=== PATIENT | female | born 1995 | race Caucasian/White ===

== ENCOUNTER 2021-11-23 03:07 | Emergency (ER) | payer BC, SELFPAY ==
[2021-11-23] VITALS (22 sets, daily range): BP systolic 102–141; BP diastolic 57–91; PULSE 71–112; RESP 7–22; TEMP 37; O2SAT 82–100; BMI 16.9
[2021-11-23 03:50] LABS: Add Manual Diff / Slide Review NO; Basophils Absolute Auto 0 /uL (0-100); Basophils Percent Auto 0.5 % (0-2); Eosinophils Absolute Auto 0 /uL (0-450); Eosinophils Percent Auto 0.3 % (2-4); Hematocrit 40.5 % (36-46); Hemoglobin 13.9 g/dL (12.0-16.0); Lymphocytes Absolute Auto 1600 /uL (1100-4500); Lymphocytes Percent Auto 19.8 % (25-40); Mean Corpuscular HGB Conc 34.3 % (30-36); Mean Corpuscular Hemoglobin 32.8 PG (26-34); Mean Corpuscular Volume 95.6 fL (80-100); Monocytes Absolute Auto 800 /uL (0-900); Monocytes Percent Auto 10.2 % (3-14); Neutrophils Absolute Auto 5600 /uL (1500-7000); Neutrophils Percent Auto 69.2 % (50-75); Platelet Count 237 X10^3/uL (150-400); Red Blood Cell Count 4.23 X10^6/uL (4.0-5.2); Red Cell Distribution Width 12.5 % (11.6-14.8); White Blood Cell Count 8.1 X10^3/uL (4.5-11.0)
[2021-11-23 03:59] LABS: D Dimer 307 ng/mL (<230)
[2021-11-23 04:01] LABS: Alanine Aminotransferase 16 IU/L (<35); Albumin Globulin Ratio 1.7 (1.0-2.8); Alkaline Phosphatase 77 U/L (38-126); Aspartate Aminotransferase 24 IU/L (14-36); Bilirubin Total 0.6 mg/dL (0.2-1.3); Blood Urea Nitrogen 7 mg/dL (7-17); Calcium 10.1 mg/dL (8.4-10.2); Carbon Dioxide 23 mmol/L (22-32); Chloride 107 mmol/L (98-107); Creatine Kinase 27 U/L (30-135); Estimated Glomerular Filt Rate > 60.0 mL/min (>60); Globulin 2.9 g/dL (1.7-4.1); Glucose 119 mg/dL (70-100); HEMOLYSIS < 15 (0-50); Magnesium 1.8 mg/dL (1.6-2.3); Potassium 3.6 mmol/L (3.4-5.1); Sodium 141 mmol/L (137-145); Total Protein 7.9 g/dL (6.3-8.2)
[2021-11-23 04:05] LABS: COVID19 -Nasal RAPID Negative (Negative)
--- NOTE | 2021-11-23 04:10 | ED.ARRPALP ---
HPI - Arrhythmia/Palpitations <DO Rivka Mcgarry Last Filed: 11/24/21 00:15> General Chief Complaint: Arrhythmia/Palpitations Stated Complaint: high heart rate Time Seen by Provider: 11/23/21 03:15 Source: patient Mode of arrival: Ambulatory History of Present Illness HPI narrative: 26-year-old female nonsmoker with significant history for anxiety presents with significant other and a chief complaint of a relatively sudden onset of high heart rate, palpitations and associated symptoms such as dizziness, lightheadedness and a feeling of near-syncope. She denies any chest pain or shortness of breath. She has no fever or chills but has had some dry cough. She is slightly nauseated but denies any vomiting. She denies any abdominal pain or diarrhea. She states that about 7 days ago she stopped taking her very low dose of gabapentin without any taper. She states that she drinks 1-2 drinks daily but has not had any for the past few days. She has stopped in the past without any symptoms or issues. She denies any history of blood clot, recent travel or lower extremity pain, swelling or edema. Her last menstrual cycle was about a week ago and normal for her. She denies any significant dietary change otherwise. Related Data Previous Rx's Medication Instructions Recorded propranolol 20 mg tablet 20 mg PO BID #60 tab 11/23/21 Allergies Allergy/AdvReac Type Severity Reaction Status Date / Time No Known Drug Allergies Allergy Verified 11/23/21 03:18 Review of Systems <DO Rivka Mcgarry Last Filed: 11/24/21 00:15> Review of Systems Narrative: GENERAL: See HPI HEENT: Denies sinus pain, ear pain, sore throat, difficulty swallowing, dizziness. RESPIRATORY: Denies dyspnea, cough, wheezing, hemoptysis, sputum. CARDIOVASCULAR: See HP GASTROINTESTINAL: Denies nausea, vomiting, abdominal pain, diarrhea, constipation, melena. : Denies dysuria, frequency, incontinence, hematuria, urinary retention. MUSCULOSKELETAL: denies weakness, joint pain, or bony pain SKIN: Denies rash, skin lesions, or other NEUROLOGIC: See HPI PSYCHIATRIC: No concerning psychosocial issues. 12 point review of systems is negative except for those stated above Patient History <DO Rivka Mcgarry Last Filed: 11/24/21 00:15> Social History Smoking Status: Never smoker Smoking Status: Never smoker alcohol intake frequency: 3 or more drinks per day Substance Use Type: marijuana Exam <Edwar Felix DO - Last Filed: 11/24/21 00:15> Narrative Exam Narrative: GENERAL: [26 year old patient appears stated age. Well-developed patient, in mild distress. Anxious and tearful HEAD: Atraumatic. Normocephalic. EYES: Pupils equal round and reactive. Extraocular motions intact. No scleral icterus. No injection or drainage. ENT: Nose without bleeding, purulent drainage. Throat without erythema, tonsillar hypertrophy or exudate. Airway patent. NECK: Trachea midline. Non tender CARDIOVASCULAR: Tachycardic but regular rhythm without murmurs, gallops, or rubs. RESPIRATORY: Clear to auscultation. Breath sounds equal bilaterally. No wheezes, rales, or rhonchi. GASTROINTESTINAL: Abdomen soft, non-tender, nondistended. EXTREMITIES: No edema or joint tenderness. BACK: Nontender without deformity or crepitance. No flank tenderness. NEURO: AOx3. SKIN: No rash or erythema of visible areas Initial Vital Signs Initial Vital Signs: Vital Signs Pulse Rate 107 H 11/23/21 03:14 Pulse Oximetry 100 11/23/21 03:14 <Marjorie Cheema MD - Last Filed: 11/23/21 10:41> Initial Vital Signs Initial Vital Signs: Vital Signs Pulse Rate 107 H 11/23/21 03:14 Pulse Oximetry 100 11/23/21 03:14 Course <Edwar Felix DO - Last Filed: 11/24/21 00:15> Course Course Narrative: After the majority of or workup was complete including very reassuring labs and a CTA which was performed due to unexplained tachycardia in the setting of a slightly elevated D-dimer myself and nursing had a bit of a [id number]-uinoy with the patient. She has had increasing anxiety since the summer such that she is unable to hold a job, she is losing weight and often times unable to care for herself. The patient has made significant attempts to align with a mental health provider in the community but has thus far been unsuccessful and admits that she is turning to alcohol and marijuana to cope. This patient would benefit from an in-depth conversation and evaluation with social Work and may even reasonably be considered for inpatient therapy. I have put in a consultation for social Work, the patient had a visible positive response to this discussion and is in complete agreement. Patient signed out to Dr. 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 Orders Ordered: Discontinued Medications Gabapentin (Gabapentin 100 Mg Capsule) 100 mg PO NOW ONE Stop: 11/23/21 09:13 Last Admin: 11/23/21 09:49 Dose: 100 mg Documented by: JAYDA Sodium Chloride (Normal Saline 0.9%) 1,000 mls @ 1,000 mls/hr IV BOLUS ONE Stop: 11/23/21 04:21 Last Infusion: 11/23/21 05:54 Dose: 0 mls/hr Documented by: Admin: 11/23/21 04:13 Dose: 1,000 mls/hr Documented by: JOANNA Lorazepam (Lorazepam 2 Mg/Ml Inj) 0.5 mg IV NOW ONE Stop: 11/23/21 06:36 Last Admin: 11/23/21 06:43 Dose: 0.5 mg Documented by: BONI Propranolol HCl (Propranolol 10 Mg Tablet) 20 mg PO NOW ONE Stop: 11/23/21 09:13 Last Admin: 11/23/21 09:49 Dose: 20 mg Documented by: JAYDA Vital Signs Vital signs: Vital Signs - 8 hr 11/23/21 03:14 11/23/21 03:15 11/23/21 03:30 Temperature 98.6 F Pulse Rate 107 H 112 H 96 H Respiratory Rate 16 12 Blood Pressure 140/91 H 108/72 Pulse Oximetry 100 100 100 11/23/21 04:00 11/23/21 04:11 11/23/21 04:47 Temperature Pulse Rate 74 81 83 Respiratory Rate 8 L 9 L Blood Pressure 111/76 Pulse Oximetry 100 100 82 L 11/23/21 05:00 11/23/21 05:24 11/23/21 05:30 Temperature Pulse Rate 72 73 71 Respiratory Rate 8 L 9 L Blood Pressure 103/61 111/66 Pulse Oximetry 100 100 100 11/23/21 05:53 11/23/21 05:54 11/23/21 06:00 Temperature Pulse Rate 86 82 71 Respiratory Rate 8 L 7 L 16 Blood Pressure 141/84 H 109/72 Pulse Oximetry 98 100 100 11/23/21 06:30 11/23/21 06:31 11/23/21 07:00 Temperature Pulse Rate 107 H 104 H 75 Respiratory Rate 20 22 13 Blood Pressure 116/71 Pulse Oximetry 100 100 100 11/23/21 07:30 11/23/21 08:00 11/23/21 08:29 Temperature Pulse Rate 78 77 74 Respiratory Rate 13 18 15 Blood Pressure 121/68 102/57 L Pulse Oximetry 99 100 100 11/23/21 08:30 11/23/21 09:00 11/23/21 09:30 Temperature Pulse Rate 93 H 93 H 99 H Respiratory Rate 20 19 17 Blood Pressure 107/61 117/76 119/75 Pulse Oximetry 99 100 100 <Marjorie Cheema MD - Last Filed: 11/23/21 10:41> Orders Ordered: Discontinued Medications Gabapentin (Gabapentin 100 Mg Capsule) 100 mg PO NOW ONE Stop: 11/23/21 09:13 Last Admin: 11/23/21 09:49 Dose: 100 mg Documented by: JAYDA Sodium Chloride (Normal Saline 0.9%) 1,000 mls @ 1,000 mls/hr IV BOLUS ONE Stop: 11/23/21 04:21 Last Infusion: 11/23/21 05:54 Dose: 0 mls/hr Documented by: Admin: 11/23/21 04:13 Dose: 1,000 mls/hr Documented by: JOANNA Lorazepam (Lorazepam 2 Mg/Ml Inj) 0.5 mg IV NOW ONE Stop: 11/23/21 06:36 Last Admin: 11/23/21 06:43 Dose: 0.5 mg Documented by: BONI Propranolol HCl (Propranolol 10 Mg Tablet) 20 mg PO NOW ONE Stop: 11/23/21 09:13 Last Admin: 11/23/21 09:49 Dose: 20 mg Documented by: JAYDA Vital Signs Vital signs: Vital Signs - 8 hr 11/23/21 03:14 11/23/21 03:15 11/23/21 03:30 Temperature 98.6 F Pulse Rate 107 H 112 H 96 H Respiratory Rate 16 12 Blood Pressure 140/91 H 108/72 Pulse Oximetry 100 100 100 11/23/21 04:00 11/23/21 04:11 11/23/21 04:47 Temperature Pulse Rate 74 81 83 Respiratory Rate 8 L 9 L Blood Pressure 111/76 Pulse Oximetry 100 100 82 L 11/23/21 05:00 11/23/21 05:24 11/23/21 05:30 Temperature Pulse Rate 72 73 71 Respiratory Rate 8 L 9 L Blood Pressure 103/61 111/66 Pulse Oximetry 100 100 100 11/23/21 05:53 11/23/21 05:54 11/23/21 06:00 Temperature Pulse Rate 86 82 71 Respiratory Rate 8 L 7 L 16 Blood Pressure 141/84 H 109/72 Pulse Oximetry 98 100 100 11/23/21 06:30 11/23/21 06:31 11/23/21 07:00 Temperature Pulse Rate 107 H 104 H 75 Respiratory Rate 20 22 13 Blood Pressure 116/71 Pulse Oximetry 100 100 100 11/23/21 07:30 11/23/21 08:00 11/23/21 08:29 Temperature Pulse Rate 78 77 74 Respiratory Rate 13 18 15 Blood Pressure 121/68 102/57 L Pulse Oximetry 99 100 100 11/23/21 08:30 11/23/21 09:00 11/23/21 09:30 Temperature Pulse Rate 93 H 93 H 99 H Respiratory Rate 20 19 17 Blood Pressure 107/61 117/76 119/75 Pulse Oximetry 99 100 100 MDM - Arrhythmia/Palpitations <Edwar Felix, DO - Last Filed: 11/24/21 00:15> Lab Data Result diagrams: 11/23/21 03:40 11/23/21 03:40 Labs: Lab Results 11/23/21 11/23/21 11/23/21 Range/Units 03:39 03:40 03:40 WBC (4.5-11.0) X10^3/uL RBC (4.0-5.2) X10^6/uL Hgb (12.0-16.0) g/dL Hct (36-46) % MCV (80-100) fL MCH (26-34) PG MCHC (30-36) % RDW (11.6-14.8) % Plt Count (150-400) X10^3/uL Neut % (Auto) (50-75) % Lymph % (Auto) (25-40) % [place] % (Auto) (3-14) % Eos % (Auto) (2-4) % Baso % (Auto) (0-2) % Neut # (Auto) (5543-3621) /uL Lymph # (Auto) (6228-9172) /uL [place] # (Auto) (0-900) /uL Eos # (Auto) (0-450) /uL Baso # (Auto) (0-100) /uL D-Dimer 307 H (<230) ng/mL Sodium 141 (137-145) mmol/L Potassium 3.6 (3.4-5.1) mmol/L Chloride 107 (98-107) mmol/L Carbon Dioxide 23 (22-32) mmol/L BUN 7 (7-17) mg/dL Creatinine 0.54 (0.52-1.04) mg/dL Estimated GFR > 60.0 (>60) mL/min BUN/Creatinine Ratio 13.0 (6-22) Glucose 119 H (70-100) mg/dL Calcium 10.1 (8.4-10.2) mg/dL Magnesium (1.6-2.3) mg/dL Total Bilirubin 0.6 (0.2-1.3) mg/dL AST 24 (14-36) IU/L ALT 16 (<35) IU/L Alkaline Phosphatase 77 (38-126) U/L Total Creatine Kinase (30-135) U/L CK-MB (CK-2) CK-MB (CK-2) Rel Index Troponin I (0.01-0.034) ng/mL Total Protein 7.9 (6.3-8.2) g/dL Albumin 5.0 (3.5-5.0) g/dL Globulin 2.9 (1.7-4.1) g/dL Albumin/Globulin Ratio 1.7 (1.0-2.8) TSH (0.47-4.68) uIU/mL U Opiates 300ng/mL cut (Negative) Ur Oxycodone Screen (Negative) Urine Methadone Screen (Negative) Ur Barbiturates Screen (Negative) U Tricyclic Antidepress (Negative) Ur Phencyclidine Scrn (Negative) Ur Amphetamines Screen (Negative) U Methamphetamines Scrn (Negative) Ur MDMA Scrn (Ecstasy) (Negative) U Benzodiazepines Scrn (Negative) Urine Cocaine Screen (Negative) U Marijuana (THC) Screen (Negative) SARS-CoV-2 (PCR) Negative (Negative) 11/23/21 11/23/21 11/23/21 Range/Units 03:40 03:40 03:40 WBC 8.1 (4.5-11.0) X10^3/uL RBC 4.23 (4.0-5.2) X10^6/uL Hgb 13.9 (12.0-16.0) g/dL Hct 40.5 (36-46) % MCV 95.6 (80-100) fL MCH 32.8 (26-34) PG MCHC 34.3 (30-36) % RDW 12.5 (11.6-14.8) % Plt Count 237 (150-400) X10^3/uL Neut % (Auto) 69.2 (50-75) % Lymph % (Auto) 19.8 L (25-40) % [place] % (Auto) 10.2 (3-14) % Eos % (Auto) 0.3 L (2-4) % Baso % (Auto) 0.5 (0-2) % Neut # (Auto) 5600 (3530-7914) /uL Lymph # (Auto) 1600 (9196-0477) /uL [place] # (Auto) 800 (0-900) /uL Eos # (Auto) 0 (0-450) /uL Baso # (Auto) 0 (0-100) /uL D-Dimer (<230) ng/mL Sodium (137-145) mmol/L Potassium (3.4-5.1) mmol/L Chloride (98-107) mmol/L Carbon Dioxide (22-32) mmol/L BUN (7-17) mg/dL Creatinine (0.52-1.04) mg/dL Estimated GFR (>60) mL/min BUN/Creatinine Ratio (6-22) Glucose (70-100) mg/dL Calcium (8.4-10.2) mg/dL Magnesium 1.8 (1.6-2.3) mg/dL Total Bilirubin (0.2-1.3) mg/dL AST (14-36) IU/L ALT (<35) IU/L Alkaline Phosphatase (38-126) U/L Total Creatine Kinase 27 L (30-135) U/L CK-MB (CK-2) TNP CK-MB (CK-2) Rel Index TNP Troponin I < 0.012 (0.01-0.034) ng/mL Total Protein (6.3-8.2) g/dL Albumin (3.5-5.0) g/dL Globulin (1.7-4.1) g/dL Albumin/Globulin Ratio (1.0-2.8) TSH 2.01 (0.47-4.68) uIU/mL U Opiates 300ng/mL cut (Negative) Ur Oxycodone Screen (Negative) Urine Methadone Screen (Negative) Ur Barbiturates Screen (Negative) U Tricyclic Antidepress (Negative) Ur Phencyclidine Scrn (Negative) Ur Amphetamines Screen (Negative) U Methamphetamines Scrn (Negative) Ur MDMA Scrn (Ecstasy) (Negative) U Benzodiazepines Scrn (Negative) Urine Cocaine Screen (Negative) U Marijuana (THC) Screen (Negative) SARS-CoV-2 (PCR) (Negative) 11/23/21 Range/Units 04:31 WBC (4.5-11.0) X10^3/uL RBC (4.0-5.2) X10^6/uL Hgb (12.0-16.0) g/dL Hct (36-46) % MCV (80-100) fL MCH (26-34) PG MCHC (30-36) % RDW (11.6-14.8) % Plt Count (150-400) X10^3/uL Neut % (Auto) (50-75) % Lymph % (Auto) (25-40) % [place] % (Auto) (3-14) % Eos % (Auto) (2-4) % Baso % (Auto) (0-2) % Neut # (Auto) (0602-5052) /uL Lymph # (Auto) (7571-1200) /uL [place] # (Auto) (0-900) /uL Eos # (Auto) (0-450) /uL Baso # (Auto) (0-100) /uL D-Dimer (<230) ng/mL Sodium (137-145) mmol/L Potassium (3.4-5.1) mmol/L Chloride (98-107) mmol/L Carbon Dioxide (22-32) mmol/L BUN (7-17) mg/dL Creatinine (0.52-1.04) mg/dL Estimated GFR (>60) mL/min BUN/Creatinine Ratio (6-22) Glucose (70-100) mg/dL Calcium (8.4-10.2) mg/dL Magnesium (1.6-2.3) mg/dL Total Bilirubin (0.2-1.3) mg/dL AST (14-36) IU/L ALT (<35) IU/L Alkaline Phosphatase (38-126) U/L Total Creatine Kinase (30-135) U/L CK-MB (CK-2) CK-MB (CK-2) Rel Index Troponin I (0.01-0.034) ng/mL Total Protein (6.3-8.2) g/dL Albumin (3.5-5.0) g/dL Globulin (1.7-4.1) g/dL Albumin/Globulin Ratio (1.0-2.8) TSH (0.47-4.68) uIU/mL U Opiates 300ng/mL cut Negative (Negative) Ur Oxycodone Screen Negative (Negative) Urine Methadone Screen Negative (Negative) Ur Barbiturates Screen Negative (Negative) U Tricyclic Antidepress Negative (Negative) Ur Phencyclidine Scrn Negative (Negative) Ur Amphetamines Screen Negative (Negative) U Methamphetamines Scrn Negative (Negative) Ur MDMA Scrn (Ecstasy) Negative (Negative) U Benzodiazepines Scrn Negative (Negative) Urine Cocaine Screen Negative (Negative) U Marijuana (THC) Screen Positive H (Negative) SARS-CoV-2 (PCR) (Negative) Point of Care Testing Test Results Negative Urine Dip Bedside Urine Glucose Negative Bedside Urine Bilirubin - Negative Bedside Urine Ketone - Negative Urine Specific [place] 1.010 Bedside Urine Occult Blood - Negative Bedside Urine pH 7.0 Bedside Urine Protein - Negative Bedside Urine Urobilinogen - Negative Bedside Urine Nitrite - Negative Bedside Urine Leukocytes - Negative Esterase ECG Data Interpretation: Sinus rhythm with rate of 90. P are 140, QRS 88, QT 435. No ST segment elevations or depressions. No ectopy <Marjorie Cheema MD - Last Filed: 11/23/21 10:41> Lab Data Labs: Lab Results 11/23/21 11/23/21 11/23/21 Range/Units 03:39 03:40 03:40 WBC (4.5-11.0) X10^3/uL RBC (4.0-5.2) X10^6/uL Hgb (12.0-16.0) g/dL Hct (36-46) % MCV (80-100) fL MCH (26-34) PG MCHC (30-36) % RDW (11.6-14.8) % Plt Count (150-400) X10^3/uL Neut % (Auto) (50-75) % Lymph % (Auto) (25-40) % [place] % (Auto) (3-14) % Eos % (Auto) (2-4) % Baso % (Auto) (0-2) % Neut # (Auto) (9080-6647) /uL Lymph # (Auto) (0359-2048) /uL [place] # (Auto) (0-900) /uL Eos # (Auto) (0-450) /uL Baso # (Auto) (0-100) /uL D-Dimer 307 H (<230) ng/mL Sodium 141 (137-145) mmol/L Potassium 3.6 (3.4-5.1) mmol/L Chloride 107 (98-107) mmol/L Carbon Dioxide 23 (22-32) mmol/L BUN 7 (7-17) mg/dL Creatinine 0.54 (0.52-1.04) mg/dL Estimated GFR > 60.0 (>60) mL/min BUN/Creatinine Ratio 13.0 (6-22) Glucose 119 H (70-100) mg/dL Calcium 10.1 (8.4-10.2) mg/dL Magnesium (1.6-2.3) mg/dL Total Bilirubin 0.6 (0.2-1.3) mg/dL AST 24 (14-36) IU/L ALT 16 (<35) IU/L Alkaline Phosphatase 77 (38-126) U/L Total Creatine Kinase (30-135) U/L CK-MB (CK-2) CK-MB (CK-2) Rel Index Troponin I (0.01-0.034) ng/mL Total Protein 7.9 (6.3-8.2) g/dL Albumin 5.0 (3.5-5.0) g/dL Globulin 2.9 (1.7-4.1) g/dL Albumin/Globulin Ratio 1.7 (1.0-2.8) TSH (0.47-4.68) uIU/mL U Opiates 300ng/mL cut (Negative) Ur Oxycodone Screen (Negative) Urine Methadone Screen (Negative) Ur Barbiturates Screen (Negative) U Tricyclic Antidepress (Negative) Ur Phencyclidine Scrn (Negative) Ur Amphetamines Screen (Negative) U Methamphetamines Scrn (Negative) Ur MDMA Scrn (Ecstasy) (Negative) U Benzodiazepines Scrn (Negative) Urine Cocaine Screen (Negative) U Marijuana (THC) Screen (Negative) SARS-CoV-2 (PCR) Negative (Negative) 11/23/21 11/23/21 11/23/21 Range/Units 03:40 03:40 03:40 WBC 8.1 (4.5-11.0) X10^3/uL RBC 4.23 (4.0-5.2) X10^6/uL Hgb 13.9 (12.0-16.0) g/dL Hct 40.5 (36-46) % MCV 95.6 (80-100) fL MCH 32.8 (26-34) PG MCHC 34.3 (30-36) % RDW 12.5 (11.6-14.8) % Plt Count 237 (150-400) X10^3/uL Neut % (Auto) 69.2 (50-75) % Lymph % (Auto) 19.8 L (25-40) % [place] % (Auto) 10.2 (3-14) % Eos % (Auto) 0.3 L (2-4) % Baso % (Auto) 0.5 (0-2) % Neut # (Auto) 5600 (3014-0667) /uL Lymph # (Auto) 1600 (7152-8299) /uL [place] # (Auto) 800 (0-900) /uL Eos # (Auto) 0 (0-450) /uL Baso # (Auto) 0 (0-100) /uL D-Dimer (<230) ng/mL Sodium (137-145) mmol/L Potassium (3.4-5.1) mmol/L Chloride (98-107) mmol/L Carbon Dioxide (22-32) mmol/L BUN (7-17) mg/dL Creatinine (0.52-1.04) mg/dL Estimated GFR (>60) mL/min BUN/Creatinine Ratio (6-22) Glucose (70-100) mg/dL Calcium (8.4-10.2) mg/dL Magnesium 1.8 (1.6-2.3) mg/dL Total Bilirubin (0.2-1.3) mg/dL AST (14-36) IU/L ALT (<35) IU/L Alkaline Phosphatase (38-126) U/L Total Creatine Kinase 27 L (30-135) U/L CK-MB (CK-2) TNP CK-MB (CK-2) Rel Index TNP Troponin I < 0.012 (0.01-0.034) ng/mL Total Protein (6.3-8.2) g/dL Albumin (3.5-5.0) g/dL Globulin (1.7-4.1) g/dL Albumin/Globulin Ratio (1.0-2.8) TSH 2.01 (0.47-4.68) uIU/mL U Opiates 300ng/mL cut (Negative) Ur Oxycodone Screen (Negative) Urine Methadone Screen (Negative) Ur Barbiturates Screen (Negative) U Tricyclic Antidepress (Negative) Ur Phencyclidine Scrn (Negative) Ur Amphetamines Screen (Negative) U Methamphetamines Scrn (Negative) Ur MDMA Scrn (Ecstasy) (Negative) U Benzodiazepines Scrn (Negative) Urine Cocaine Screen (Negative) U Marijuana (THC) Screen (Negative) SARS-CoV-2 (PCR) (Negative) 11/23/21 Range/Units 04:31 WBC (4.5-11.0) X10^3/uL RBC (4.0-5.2) X10^6/uL Hgb (12.0-16.0) g/dL Hct (36-46) % MCV (80-100) fL MCH (26-34) PG MCHC (30-36) % RDW (11.6-14.8) % Plt Count (150-400) X10^3/uL Neut % (Auto) (50-75) % Lymph % (Auto) (25-40) % [place] % (Auto) (3-14) % Eos % (Auto) (2-4) % Baso % (Auto) (0-2) % Neut # (Auto) (9426-9328) /uL Lymph # (Auto) (7611-1685) /uL [place] # (Auto) (0-900) /uL Eos # (Auto) (0-450) /uL Baso # (Auto) (0-100) /uL D-Dimer (<230) ng/mL Sodium (137-145) mmol/L Potassium (3.4-5.1) mmol/L Chloride (98-107) mmol/L Carbon Dioxide (22-32) mmol/L BUN (7-17) mg/dL Creatinine (0.52-1.04) mg/dL Estimated GFR (>60) mL/min BUN/Creatinine Ratio (6-22) Glucose (70-100) mg/dL Calcium (8.4-10.2) mg/dL Magnesium (1.6-2.3) mg/dL Total Bilirubin (0.2-1.3) mg/dL AST (14-36) IU/L ALT (<35) IU/L Alkaline Phosphatase (38-126) U/L Total Creatine Kinase (30-135) U/L CK-MB (CK-2) CK-MB (CK-2) Rel Index Troponin I (0.01-0.034) ng/mL Total Protein (6.3-8.2) g/dL Albumin (3.5-5.0) g/dL Globulin (1.7-4.1) g/dL Albumin/Globulin Ratio (1.0-2.8) TSH (0.47-4.68) uIU/mL U Opiates 300ng/mL cut Negative (Negative) Ur Oxycodone Screen Negative (Negative) Urine Methadone Screen Negative (Negative) Ur Barbiturates Screen Negative (Negative) U Tricyclic Antidepress Negative (Negative) Ur Phencyclidine Scrn Negative (Negative) Ur Amphetamines Screen Negative (Negative) U Methamphetamines Scrn Negative (Negative) Ur MDMA Scrn (Ecstasy) Negative (Negative) U Benzodiazepines Scrn Negative (Negative) Urine Cocaine Screen Negative (Negative) U Marijuana (THC) Screen Positive H (Negative) SARS-CoV-2 (PCR) (Negative) Point of Care Testing Test Results Negative Urine Dip Bedside Urine Glucose Negative Bedside Urine Bilirubin - Negative Bedside Urine Ketone - Negative Urine Specific [place] 1.010 Bedside Urine Occult Blood - Negative Bedside Urine pH 7.0 Bedside Urine Protein - Negative Bedside Urine Urobilinogen - Negative Bedside Urine Nitrite - Negative Bedside Urine Leukocytes - Negative Esterase MDM Narrative Medical decision making narrative: 26-year-old woman who initially presented for chest pain and palpitations. Initial medical workup was very reassuring. At the end of the workup she brought up her intense disabling anxiety that has gotten worse over the last number of weeks. She has been using 1-2 a drinks a day and stop doing this a couple of days ago. She is seeing a physician who had tried Zoloft which did not seem to work and in fact made things worse. She had been on gabapentin which actually did seem to be effective. She had worked up to 200 mg in the morning and 1-200 mg in the evening. She took an extra dose accidentally 1 day and did not like the affects so stopped altogether. The gabapentin was discontinued abruptly about a week ago and the alcohol abruptly approximately 3 days ago. We talked about options. 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 She is interested in talking with a therapist or psychiatrist who can also do medical management and continue to work with her. She finds that she is sensitive to medications and not interested in medications that may cause dependence or withdrawal symptoms. As she done well with the gabapentin previously will restart that at 100 mg in the morning. We also discussed low-dose propranolol to help with the hi epinephrine levels and palpitations. Will ask our social work lecturer to help her find a provider with whom to work and have her follow-up with her medical doctor regarding continued medications. All of these suggestions are well received. Also considered the possibility of bupropion but she was not interested in trying that at this time. In terms of antidepressants with dopamine reuptake issues, Wellbutrin fits into that category however may be too stimulating for her given the excess epinephrine. She may eventually need a longer acting benzodiazepine such as clonazepam but I believe there are multiple other options to try before we get to that. ROLLING MILL OPERATOR: given multiple resources, crisis line number, cirsis stabalization options. She was feeling comfortable with home. Not currently suicidal, medication changes are offering hope for her. Still a bit overwhelmed. She is , her is available but unsure how to help. She understands she can return to the ER at any time and is safe for home discharge. Discharge Plan Departure Patient Disposition: Home Clinical Impression: Palpitations, Anxiety Instructions: DI for Depression -- Adult, DI for Anxiety -- Adult Activity Restrictions/Additional Instructions: Thank you for coming in today Your physical workup was very reassuring. There is nothing wrong with your heart or lungs. Your blood work was equally reassuring. You did get half a mg of Ativan to help with anxiety in the emergency department I am going to suggest that you restart 100 mg of gabapentin in the morning and add 100 mg in the evening if you are able to tolerate this. For the palpitations, rapid heart rate and he seemingly excessive epinephrine I am going to suggest a beta-debbie. The when we typically use in this setting is called propranolol. I am going to start you at a very low dose, 20 mg in the morning and the evening. You will need to follow-up with your medical doctor regarding the medication changes Prescriptions: New propranolol 20 mg tablet 20 mg PO BID Qty: 60 1RF
[2021-11-23 04:12] LABS: Troponin I < 0.012 ng/mL (0.01-0.034)
[2021-11-23] MEDS: SODIUM CHLORIDE 0.9% 1,000 ML 1000 ML IV (04:13)
--- NOTE | 2021-11-23 04:15 | DI.CT.S_ITS ---
PROCEDURE: CT ANGIO CHEST PE PROTOCOL INDICATIONS: tachycardia, short of breath, dizzy, elevated DDimer TECHNIQUE: After the administration of intravenous contrast, 2 mm thick sections acquired from the pulmonary apices to the posterior costophrenic angles. 3-dimensional maximum intensity projection (MIP) coronal and sagittal reformats were then acquired through the thorax. For radiation dose reduction, the following was used: automated exposure control, adjustment of mA and/or kV according to patient size. COMPARISON: None. FINDINGS: Image quality: Excellent. Pulmonary arteries: Pulmonary arteries are normal in size, and demonstrate no intraluminal filling defects to suggest central pulmonary embolism. Lungs and pleura: Lungs are clear. No pleural effusions or pneumothorax. Central and peripheral airways are patent. Mediastinum: Heart size is normal, without pericardial effusion. There is a small amount residual thymus tissue seen, which is not regarded to be pathologic in a patient of this age. No mediastinal or hilar adenopathy. Thoracic aorta is normal in caliber and enhancement. Esophagus is normal in caliber, without hiatal hernia. Bones and chest wall: No suspicious bony lesions. Mild dextroconvex scoliotic curvature is seen. Ribs and thoracic spine appear intact throughout. Thyroid gland demonstrates no significant abnormality. No axillary or supraclavicular adenopathy. Abdomen: Visualized upper abdominal solid organs appear normal in the early arterial phase of enhancement. IMPRESSION: Negative for pulmonary embolism. Mild dextroconvex scoliotic curvature is incidentally noted. Note: No significant discrepancy from the preliminary report. Dictated by: Nic Borjas M.D. on 11/23/2021 at 7:25 Approved by: Nic Borjas M.D. on 11/23/2021 at 7:27
[2021-11-23 04:32] LABS: TSH w/ Reflex to FT4 2.01 uIU/mL (0.47-4.68)
[2021-11-23 04:46] LABS: Ur Creatinine Normal (Normal); Ur Specific Gravity Normal (Normal); Urine pH Normal (Normal)
[2021-11-23 04:47] LABS: UR Morphine/Opiate cutoff 300 Negative (Negative); Urine Amphetamines Negative (Negative); Urine Barbiturates Negative (Negative); Urine Benzodiazepines Negative (Negative); Urine Cocaine Negative (Negative); Urine MDMA Negative (Negative); Urine Methadone Negative (Negative); Urine Methamphetamines Negative (Negative); Urine Oxycodone Negative (Negative); Urine Phencyclidine Negative (Negative); Urine Tetrahydrocannabinol Positive (Negative); Urine Tricyclic Antidepressant Negative (Negative)
--- NOTE | 2021-11-23 05:54 | PC.NURSE ---
Patient reports feeling another wave light headed, shaky, warm flushed feeling Provider aware.
[2021-11-23] MEDS: LORazepam 2 MG/ML INJ 0.5 MG IV (06:43)
--- NOTE | 2021-11-23 07:09 | PC.NURSE ---
Patient very tearful, had stepped out of department. Patient opened up. Reports she doesn't feel supported at home I don't feel safe I had to beg my to bring me in here. Now he is mad at me. He is tired Patient reports she had a mental breakdown in May and has not been able to hold down a job since. 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 Patient recently stopped taking Gabapentin and hasn't had normal alcohol beverages the last couple days. Dr Felix aware of patients mental status, and requesting additional help with resourses
[2021-11-23] MEDS: GABAPENTIN 100 MG CAPSULE PO (09:49)
[2021-11-23] MEDS: PROPRANOLOL 10 MG TABLET 20 MG PO (09:49)
--- NOTE | 2021-11-23 11:45 | CM.SWNOTE ---
Patient is a 26 yo female who was admitted on 11/23/21 to [facility] ED for high heart rate. Pt has [employer] OUT [employer] for insurance and her PCP is not listed but pt is established with PCP. EMR was reviewed. Per ED MD, MARTIN Consult placed due to pt's stated level of anxiety and negative impact to her ability to complete her ADL's. TELEX OPERATOR met bedside with pt and see assessment below. MARTIN Tompkins Discharge Planning/Care Management TELEX OPERATOR - Coroner Forensic Technician Assessment Start: 11/23/21 11:23 Freq: Status: Active Protocol: Document 11/23/21 11:23 BF (Rec: 11/23/21 11:45 BF [id number]) TELEX OPERATOR/Coroner Forensic Technician Assessment Start date 11/23/21 Visit Start Time 09:15 End date 11/23/21 Visit End Time 10:00 Total time Care Management spent on 60 min patient visit-in minutes Presenting Problem Pt presents to ED for heart palpitations and high heart rate and confirms she has hx of dx anxiety and has been having mental health challenges Precipitating Event(s) Pt states she had a break down in May 2021 about 6 months ago and had to quit her job and has not been the same since and is struggling to maintain ADL's or manage life activities Patient Strengths Pt is seeking help and has actively been attempting to get established with MH provider. Pt has been able to successfully be employed prior to May, moved with spouse in 2018 and managed her anxiety until recently Current Behavioral Health Provider(s) none, attempting to get Include Facility, Provider, Ph. # established Psych. Hx Mental Health and Chemical Pt states she has had anxiety Dependency since she was young and has hx of counseling when she was in 5th grade and then when she was 18 yo but none since. Pt at times self medicates with alcohol and marijuana. Family Hx of Behavioral Abuse Pt states both her and her spouse's families are unhealthy emotionally and disfunctional and are not supportive or much involved. Psychiatric Hospitalizations (date(s)/ denies location) Psychosocial information & Support Pt currently unable to remain Systems employed due to her anxiety/ mental health since May but states her spouse is her primary support but she has also built up a few friend supports locally since their move here in 2019 School/Work none, currently unable to remain employed due to mental health needs Legal Matters - Outstanding Issues denies Orientation (Person/Place/Time) Pt alert and oriented x4 Stated Mood Tearful, states overwhelmed by every daily task, medical symptoms including heart racing, chest pain, shallow breathing Affect (Congruent with Mood?) Congruent with stated mood, tearful, participatory Thought Content - Specify/Describe Denies any delusions or Obsessions, Delusions, Hallucinations hallucinations but has constant feelings of being overwhelmed and exhausted Thought Processes (Mnqoosi-Zsblhcuv-Twvt Logical, goal oriented, Eloezbbu-Wvnjcygo-Dbyvtyxfmg- motivated but overwhelmed Yppfyelnqvmeat-Dbkyqzv-Corkwugmyeoq- Thought Blocking) Speech (Czydnr-Jnmt-Miwqzli-Rapid-Soft- Soft, normal Loud-Pressured) Motor (Vstqpc-Fcylmlngy-Esjy-Other) Slow to normal Insight (Nxzi-Zksu-Wjdl/Limited) Good to fair depending on her feelings of being overwhelmed Judgement (Bspi-Exon-Lyck/Limited) Good Impulse Control (Adequate-Impaired) Impaired due to her anxiety level and panic Memory (Scrsbfags-Jrgzwx-Vhuwsg, Recent, states difficulty Impaired-Intact) remembering things due to anxious thoughts/feelings Attention (Intact-Impaired) impaired Behavior (Appropriate-Inappropriate) appropriate Suicidal Ideation (Plan) No: denies Homicidal Ideation (Plan) No Intervention TELEX OPERATOR met bedside with pt in ED room 11 and she confirms she lives in [facility] with her spouse who works in [place] 5 days a week and is supportive but feeling at a loss of how to help pt and decreased empathy/patience as pt has been struggling with increased anxiety since May 2021 about 6 months ago to a point that she had to quit her job. Pt states that she feels safe with her at home but that he doesn't fully understand how she is feeling and that she can't just feel better and change the anxiety herself to feel better. Pt denies any S.I. or hx of S.I. but states she has had anxiety since she was a young child with a hx of MH counseling when she was an adolescent/ teenager but not during her adult life. Pt attributes her break down in May to working way too much for 2 years at my job since we moved her in 2018 and COVID stressors in the world and has not been able to return to work since May. Pt states she is home 5 days a week alone when her is at work and no nearby friends ([place] and [place] are where her local friends reside) and pt feels overwhelmed by every daily activity. Pt has been attempting to get established with Psychiatrist and counselor and has called individual counselors in the area with no luck. Pt also looked into MH providers in [facility] as her works there and they currently only have one vehicle that he uses to commute. Pt would be agreeable to a MH agency or individual provider. SW provided [facility] MH agency list that take private insurance as well as local individual counselors and encouarged pt to seek assist from friends and spouse with placing calls due to pt's current feelings of being overwhelmed. SW also provided [facility] (mobile outreach team) information and contact and discussed their services along with [facility] ( Crisis stabilization center in [place]) and Inpt MH tx and how both options work for support. SW provided contact info for both crisis stabilization/triage and Inpt MH tx and pt very appreciative and states she feels relieved knowing the options including returning to ED if needed. Pt states she currently would like to return home with resources to get set up with outpt MH providers (counselor/ psychiatrist) and comfortable with the other resources provided in case she decompensates once she gets home. Pt states her spouse is attempting to get the next 5 days off work. RA Plan TELEX OPERATOR updated MD and RN and all in agreement that pt could be safe for d/c to the community with spouse and provided resources at this time and MD provided pt's medications prior to d/c. Pt to follow up with provided outpt MH providers towards getting established for ongoing anxiety related dx and has resources in case higher level of care needed after discharge.
== END 2021-11-23 10:53 | disposition home or self-care (01) ==
PROVIDERS: Emergency Medicine; Emergency Provider Emergency Medicine
DX: R00.2 Palpitations (principal); F41.9 Anxiety disorder, unspecified; Z20.822 Contact with and (suspected) exposure to COVID-19
CPT/HCPCS: 36415; 71275; 80053; 80305; 81003; 81025; 82550; 83735; 84443; 84484; 85025; 85379; 87635; 93005; 96361; 96374; 99284; C9803; J2060; Q9967

== ENCOUNTER 2021-11-27 09:43 | Emergency (ER) | payer BC, SELFPAY ==
[2021-11-27 09:50] VITALS: BP 131/78; PULSE 71; RESP 13; TEMP 36.6; O2SAT 100; BMI 16.9
[2021-11-27 10:27] LABS: COVID19 -Nasal RAPID Negative (Negative)
--- NOTE | 2021-11-27 10:38 | ED_ITS ---
HPI - General Adult General Chief complaint: Shortness of Breath/Dyspnea Stated complaint: Feels faint, here recently and not getting better Time Seen by Provider: 11/27/21 09:46 Source: patient Mode of arrival: Ambulatory History of Present Illness HPI narrative: 26-year-old female who was seen here in the emergency department couple days ago and had a fairly extensive workup for tachycardia and shortness of breath. Review that note states that there was a fairly high concern that anxiety played a role in her presenting symptoms. Since that time she has followed up with her primary doctor. She states that her primary doctor would like her to have some lab test performed that she does not know exactly what these tests are. She states that she does not feel like anxiety is causing her symptoms today. She states she is having episodes feeling faint also having shortness of breath. Had exposure to COVID in the past. Is unvaccinated. Related Data Previous Rx's Medication Instructions Recorded propranolol 20 mg tablet 20 mg PO BID #60 tab 11/23/21 Allergies Allergy/AdvReac Type Severity Reaction Status Date / Time No Known Drug Allergies Allergy Verified 11/27/21 09:53 Review of Systems Cardiovascular Cardiovascular: Reports as per HPI and Reports system reviewed and no additional complaints, except as documented Respiratory Respiratory: Reports as per HPI and Reports system reviewed and no additional complaints, except as documented Gastrointestinal Gastrointestinal: Reports as per HPI and Reports system reviewed and no addition al complaints, except as documented Integumentary/Breasts Skin/Breast: Reports system reviewed and no additional complaints, except as documented and Reports as per HPI Psychiatric Psychiatric: Reports system reviewed and no additional complaints, except as documented and Reports as per HPI Hematologic/Lymphatic On Anticoagulants: No Patient History Medical History Anxiety Palpitations Social History Smoking Status: Never smoker Smoking Status: Never smoker alcohol intake frequency: 3 or more drinks per day Substance Use Type: marijuana Exam Initial Vital Signs Initial Vital Signs: Vital Signs Temperature 97.9 F 11/27/21 09:50 Pulse Rate 71 11/27/21 09:50 Respiratory Rate 13 11/27/21 09:50 Blood Pressure 131/78 11/27/21 09:50 Pulse Oximetry 100 11/27/21 09:50 Const General: cooperative and healthy appearing HENMA Head: normal to inspection Resp Effort & Inspection: normal respiratory effort Cardio Rate: regular rate Skin General: no rashes or lesions noted Neuro General: patient alert, patient awake, patient oriented x3 and moves all extremities Gait: normal gait Extrem General: normal to inspection Psych Appearance: grossly normal and well kempt Speech and Movement: restless Course Orders Ordered: ED Orders 11/27/21 09:57 COVID19 -Nasal swab/Pre-Proc Stat Vital Signs Vital signs: Vital Signs - 8 hr 11/27/21 11:25 Pulse Rate 83 Respiratory Rate 18 Blood Pressure 119/73 Pulse Oximetry 100 Medical Decision Making Lab Data Labs: Lab Results 11/27/21 Range/Units 09:57 SARS-CoV-2 (PCR) Negative (Negative) MDM Narrative Medical decision making narrative: Patient's vital signs are unremarkable. COVID test is negative. Patient is visibly anxious and upset. No further workup required in the emergency department she had a very extensive workup a couple days ago. I did contact the outpatient lab and they have no record of lab tests ordered by her primary doctor. I do not feel any lab tests are warranted and the emergency department here. Provided reassurance to the patient however told her that she will need further evaluation by her primary doctor. She was given return precautions. She expressed understanding. Discharge Plan Departure Patient Disposition: Home Clinical Impression: Episodic lightheadedness Activity Restrictions/Additional Instructions: Your COVID test was negative today. You had a very extensive workup several days ago when you were here and I hope that it is reassuring that everything appears to be okay. I did contact the lab and there are no outpatient orders in the system from your primary doctor. I recommend that you contact your to clarify the situation. I do recommend that you follow-up with your primary doctor. Return to the emergency department for any worsening symptoms. Prescriptions: No Action propranolol 20 mg tablet 20 mg PO BID Qty: 60 1RF Referrals: Yola Alberts ND [Primary Care Provider] -
[2021-11-27 11:25] VITALS: BP 119/73; PULSE 83; RESP 18; O2SAT 100
== END 2021-11-27 11:28 | disposition home or self-care (01) ==
PROVIDERS: Emergency Provider Emergency Medicine; PCP Naturopath
DX: R42 Dizziness and giddiness (principal); Z20.822 Contact with and (suspected) exposure to COVID-19; N92.6 Irregular menstruation, unspecified; R06.00 Dyspnea, unspecified; R78.1 Finding of opiate drug in blood; F41.9 Anxiety disorder, unspecified; R00.0 Tachycardia, unspecified
CPT/HCPCS: 36415; 82670; 83835; 84144; 84403; 85025; 85379; 85610; 85651; 85730; 86140; 87635; 99281; 99283; C9803

== ENCOUNTER → 2021-11-27 11:40 | Outpatient (CLI) | payer BC, SELFPAY ==
[2021-11-27 12:58] LABS: Add Manual Diff / Slide Review NO; Basophils Absolute Auto 100 /uL (0-100); Basophils Percent Auto 0.5 % (0-2); Eosinophils Absolute Auto 100 /uL (0-450); Hematocrit 41.1 % (36-46); Hemoglobin 14.2 g/dL (12.0-16.0); Lymphocytes Absolute Auto 2500 /uL (1100-4500); Mean Corpuscular HGB Conc 34.4 % (30-36); Mean Corpuscular Volume 95.9 fL (80-100); Monocytes Absolute Auto 1100 /uL (0-900); Monocytes Percent Auto 11.5 % (3-14); Neutrophils Absolute Auto 6000 /uL (1500-7000); Platelet Count 289 X10^3/uL (150-400); Red Blood Cell Count 4.29 X10^6/uL (4.0-5.2); Red Cell Distribution Width 12.6 % (11.6-14.8); White Blood Cell Count 9.8 X10^3/uL (4.5-11.0)
[2021-11-27 13:13] LABS: Erythrocyte Sedimentation Rate 3 MM/HR (0-20)
[2021-11-27 13:17] LABS: INR 1.2 (0.9-1.3); Prothrombin Time 13.6 SECONDS (10.1-12.7)
[2021-11-27 13:19] LABS: D Dimer 372 ng/mL (<230); PTT Partial Thromboplastin Tim 32 SECONDS (26.4-36.2)
[2021-11-27 13:47] LABS: C-Reactive Protein Quant < 0.5 mg/dL (<1.0)
[2021-11-27 14:14] LABS: Testosterone 48.7 ng/dL (5.71-77.0)
[2021-11-27 17:59] LABS: Estradiol, Total 172.4 pg/mL
[2021-12-02 07:38] LABS: Metanephrine,Plasma 18.7 pg/mL (0.0-88.0)
== END ==
PROVIDERS: PCP Naturopath; Referring Provider Naturopath; Visit Provider Naturopath
DX: N92.6 Irregular menstruation, unspecified (principal); R06.00 Dyspnea, unspecified; R00.0 Tachycardia, unspecified; R78.1 Finding of opiate drug in blood; F41.9 Anxiety disorder, unspecified
CPT/HCPCS: 36415; 82670; 83835; 84144; 84403; 85025; 85379; 85610; 85651; 85730; 86140

== ENCOUNTER 2021-11-28 02:40 | Emergency (ER) | payer BC, SELFPAY ==
[2021-11-28] VITALS (29 sets, daily range): BP systolic 104–155; BP diastolic 55–93; PULSE 71–130; RESP 20–22; TEMP 36.4–37; O2SAT 95–100; BMI 16.9
--- NOTE | 2021-11-28 03:11 | ED_ITS ---
HPI - Psych <Edwar Felix DO - Last Filed: 12/01/21 20:15> General Chief Complaint: Psychiatric Symptoms Stated Complaint: sob/dizzy/fatigued x6 days Time Seen by Provider: 11/28/21 02:44 History of Present Illness HPI Narrative: 26-year-old female nonsmoker with significant history for anxiety presents?with her for the 3rd time in the past few days with worsening symptoms. She had been seen initially on the for relatively sudden onset tachycardia dizziness, lightheadedness, she had a very extensive workup including labs and even CT angiogram which were unremarkable. In the and she discussed how she had been dealing with worsening, crippling anxiety since the summer and has had to quit her job and things are escalating to the point where she is unable to care for herself, not eating, not drinking, cannot work or relate to others and is having suicidal thoughts, though without a plan. She is tearful and begging us not to send her home because she does not see feel safe. She denies any alcohol or street drugs. At that initial visit she received an TECHNICAL PROFESSIONAL consult and was given resources for home but states that she has been so bad she cannot even focus on pursuing those resources. She had been discharged with a prescription for propanolol which may have helped for the 1st day or 2 but now she is convinced are worsening her symptoms. She returned this morning and again stated that she was fatigued, dizzy, lightheaded, and on the verge of losing it. She was seen again this morning as she states that she was feeling terrible, a repeat COVID and EKG were obtained but given the extensive workup a few days ago repeat labs were not ordered. She was sent home with reassurance and encourage to reach out to the point of contact she was given by TECHNICAL PROFESSIONAL Related Data Home Medications Medication Instructions Recorded Confirmed gabapentin 100 mg capsule 100 mg PO TID 11/28/21 11/28/21 propranolol 20 mg tablet 20 mg PO BID 11/28/21 11/28/21 Allergies Allergy/AdvReac Type Severity Reaction Status Date / Time No Known Drug Allergies Allergy Verified 11/27/21 09:53 Review of Systems <DO Rivka Mcgarry Last Filed: 12/01/21 20:15> Review of Systems Narrative: GENERAL: See HP a HEENT: Denies sinus pain, ear pain, sore throat, difficulty swallowing, dizziness. RESPIRATORY: Denies dyspnea, cough, wheezing, hemoptysis, sputum. CARDIOVASCULAR: See HPI GASTROINTESTINAL: Denies nausea, vomiting, abdominal pain, diarrhea, constipation, melena. : Denies dysuria, frequency, incontinence, hematuria, urinary retention. MUSCULOSKELETAL: denies weakness, joint pain, or bony pain SKIN: Denies rash, skin lesions, or other NEUROLOGIC: Denies weakness, headache, numbness, change in speech, confusion, seizures, incoordination. PSYCHIATRIC: See HPI 12 point review of systems is negative except for those stated above Patient History <Edwar Felix DO - Last Filed: 12/01/21 20:15> Medical History Anxiety Palpitations Social History Smoking Status: Never smoker Smoking Status: Never smoker alcohol intake frequency: 3 or more drinks per day Substance Use Type: marijuana Exam <Edwar Felix DO - Last Filed: 12/01/21 20:15> Narrative Exam Narrative: GENERAL: [26 year old patient appears stated age. Thin, visibly anxious, tearful and very upset HEAD: Atraumatic. Normocephalic. EYES: Pupils equal round and reactive. Extraocular motions intact. No scleral icterus. No injection or drainage. ENT: Nose without bleeding, purulent drainage. Throat without erythema, tonsillar hypertrophy or exudate. Airway patent. NECK: Trachea midline. Non tender CARDIOVASCULAR: Regular rate and rhythm without murmurs, gallops, or rubs. RESPIRATORY: Clear to auscultation. Breath sounds equal bilaterally. No wheezes, rales, or rhonchi. GASTROINTESTINAL: Abdomen soft, non-tender, nondistended. EXTREMITIES: No edema or joint tenderness. BACK: Nontender without deformity or crepitance. No flank tenderness. NEURO: AOx3. SKIN: No rash or erythema of visible areas Initial Vital Signs Initial Vital Signs: Vital Signs Pulse Oximetry 98 11/28/21 02:51 <Kevin Sheridan MD - Last Filed: 11/28/21 19:28> Initial Vital Signs Initial Vital Signs: Vital Signs Pulse Oximetry 98 11/28/21 02:51 Course <Edwar Felix DO - Last Filed: 12/01/21 20:15> Orders Ordered: Discontinued Medications Sodium Chloride (Normal Saline 0.9%) 1,000 mls @ 1,000 mls/hr IV BOLUS ONE Stop: 11/28/21 03:56 Last Infusion: 11/28/21 05:08 Dose: 0 mls/hr Documented by: Admin: 11/28/21 03:38 Dose: 1,000 mls/hr Documented by: SABAS Lorazepam (Lorazepam 2 Mg/Ml Inj) 0.5 mg IV NOW ONE Stop: 11/28/21 02:58 Last Admin: 11/28/21 03:38 Dose: 0.5 mg Documented by: SABAS Vital Signs Vital signs: Vital Signs - 8 hr 11/28/21 11:30 11/28/21 12:00 11/28/21 12:30 Pulse Rate 80 130 H 103 H Blood Pressure Pulse Oximetry 100 100 100 11/28/21 13:00 11/28/21 13:30 11/28/21 14:00 Pulse Rate 101 H 98 H 91 H Blood Pressure Pulse Oximetry 100 99 99 11/28/21 14:30 11/28/21 14:50 Pulse Rate 95 H 95 H Blood Pressure 111/61 Pulse Oximetry 100 100 <Kevin Sheridan MD - Last Filed: 11/28/21 19:28> Course Course Narrative: The patient's care was initiated Dr. Felix. 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 She has been clinically stable and cooperative all day. She denies current SI, she says she currently feels well. Voluntary admission to [facility] has been obtained. The patient will be transferred to that facility later this evening.- Pablo SKY @19:21 11/28/21. Orders Ordered: Discontinued Medications Sodium Chloride (Normal Saline 0.9%) 1,000 mls @ 1,000 mls/hr IV BOLUS ONE Stop: 11/28/21 03:56 Last Infusion: 11/28/21 05:08 Dose: 0 mls/hr Documented by: Admin: 11/28/21 03:38 Dose: 1,000 mls/hr Documented by: SABAS Lorazepam (Lorazepam 2 Mg/Ml Inj) 0.5 mg IV NOW ONE Stop: 11/28/21 02:58 Last Admin: 11/28/21 03:38 Dose: 0.5 mg Documented by: SABAS Vital Signs Vital signs: Vital Signs - 8 hr 11/28/21 11:30 11/28/21 12:00 11/28/21 12:30 Pulse Rate 80 130 H 103 H Blood Pressure Pulse Oximetry 100 100 100 11/28/21 13:00 11/28/21 13:30 11/28/21 14:00 Pulse Rate 101 H 98 H 91 H Blood Pressure Pulse Oximetry 100 99 99 11/28/21 14:30 11/28/21 14:50 Pulse Rate 95 H 95 H Blood Pressure 111/61 Pulse Oximetry 100 100 MDM - Psych <Edwar Felix DO - Last Filed: 12/01/21 20:15> Lab Data Result diagrams: 11/28/21 03:25 11/28/21 03:25 Labs: Lab Results 11/28/21 11/28/21 11/28/21 Range/Units 03:25 03:25 03:25 WBC 12.0 H (4.5-11.0) X10^3/uL RBC 4.20 (4.0-5.2) X10^6/uL Hgb 13.8 (12.0-16.0) g/dL Hct 40.1 (36-46) % MCV 95.3 (80-100) fL MCH 32.8 (26-34) PG MCHC 34.4 (30-36) % RDW 12.7 (11.6-14.8) % Plt Count 255 (150-400) X10^3/uL Neut % (Auto) 70.2 (50-75) % Lymph % (Auto) 18.2 L (25-40) % [place] % (Auto) 10.7 (3-14) % Eos % (Auto) 0.7 L (2-4) % Baso % (Auto) 0.2 (0-2) % Neut # (Auto) 8400 H (5661-9314) /uL Lymph # (Auto) 2200 (1765-7532) /uL [place] # (Auto) 1300 H (0-900) /uL Eos # (Auto) 100 (0-450) /uL Baso # (Auto) 0 (0-100) /uL Sodium 138 (137-145) mmol/L Potassium 3.6 (3.4-5.1) mmol/L Chloride 106 (98-107) mmol/L Carbon Dioxide 18 L (22-32) mmol/L BUN 9 (7-17) mg/dL Creatinine 0.61 (0.52-1.04) mg/dL Estimated GFR > 60.0 (>60) mL/min BUN/Creatinine Ratio 14.8 (6-22) Glucose 97 (70-100) mg/dL Calcium 10.0 (8.4-10.2) mg/dL Magnesium (1.6-2.3) mg/dL Total Bilirubin 2.1 H (0.2-1.3) mg/dL AST 24 (14-36) IU/L ALT 15 (<35) IU/L Alkaline Phosphatase 61 (38-126) U/L Total Creatine Kinase (30-135) U/L Total Protein 8.0 (6.3-8.2) g/dL Albumin 4.9 (3.5-5.0) g/dL Globulin 3.1 (1.7-4.1) g/dL Albumin/Globulin Ratio 1.6 (1.0-2.8) TSH (0.47-4.68) uIU/mL Urine Color Urine Appearance Urine pH (4.5-8.0) Ur Specific [place] (1.000-1.035) Urine Protein (Negative) Urine Glucose (UA) (Negative) g/dL Urine Ketones (NEGATIVE) Urine Occult Blood (Negative) Urine Nitrate (Negative) Urine Bilirubin (NEGATIVE) Urine Urobilinogen (0.2) E.U./dL Ur Leukocyte Esterase (NEGATIVE) Urine RBC (0-5/HPF) Urine WBC (0-5/HPF) Ur Squamous Epith Cells (0-5/HPF) Urine Bacteria (None) Urine Mucus (Negative) Ur Culture Indicated? Urine Test (Negative) U Opiates 300ng/mL cut (Negative) Ur Oxycodone Screen (Negative) Urine Methadone Screen (Negative) Ur Barbiturates Screen (Negative) U Tricyclic Antidepress (Negative) Ur Phencyclidine Scrn (Negative) Ur Amphetamines Screen (Negative) U Methamphetamines Scrn (Negative) Ur MDMA Scrn (Ecstasy) (Negative) U Benzodiazepines Scrn (Negative) Urine Cocaine Screen (Negative) U Marijuana (THC) Screen (Negative) Ethyl Alcohol < 10 ( - 10) mg/dL SARS-CoV-2 (PCR) Negative (Negative) 11/28/21 11/28/21 11/28/21 Range/Units 03:25 03:25 10:20 WBC (4.5-11.0) X10^3/uL RBC (4.0-5.2) X10^6/uL Hgb (12.0-16.0) g/dL Hct (36-46) % MCV (80-100) fL MCH (26-34) PG MCHC (30-36) % RDW (11.6-14.8) % Plt Count (150-400) X10^3/uL Neut % (Auto) (50-75) % Lymph % (Auto) (25-40) % [place] % (Auto) (3-14) % Eos % (Auto) (2-4) % Baso % (Auto) (0-2) % Neut # (Auto) (7457-9193) /uL Lymph # (Auto) (2282-5041) /uL [place] # (Auto) (0-900) /uL Eos # (Auto) (0-450) /uL Baso # (Auto) (0-100) /uL Sodium (137-145) mmol/L Potassium (3.4-5.1) mmol/L Chloride (98-107) mmol/L Carbon Dioxide (22-32) mmol/L BUN (7-17) mg/dL Creatinine (0.52-1.04) mg/dL Estimated GFR (>60) mL/min BUN/Creatinine Ratio (6-22) Glucose (70-100) mg/dL Calcium (8.4-10.2) mg/dL Magnesium 1.9 (1.6-2.3) mg/dL Total Bilirubin (0.2-1.3) mg/dL AST (14-36) IU/L ALT (<35) IU/L Alkaline Phosphatase (38-126) U/L Total Creatine Kinase 27 L (30-135) U/L Total Protein (6.3-8.2) g/dL Albumin (3.5-5.0) g/dL Globulin (1.7-4.1) g/dL Albumin/Globulin Ratio (1.0-2.8) TSH 1.05 D (0.47-4.68) uIU/mL Urine Color Urine Appearance Urine pH (4.5-8.0) Ur Specific [place] (1.000-1.035) Urine Protein (Negative) Urine Glucose (UA) (Negative) g/dL Urine Ketones (NEGATIVE) Urine Occult Blood (Negative) Urine Nitrate (Negative) Urine Bilirubin (NEGATIVE) Urine Urobilinogen (0.2) E.U./dL Ur Leukocyte Esterase (NEGATIVE) Urine RBC (0-5/HPF) Urine WBC (0-5/HPF) Ur Squamous Epith Cells (0-5/HPF) Urine Bacteria (None) Urine Mucus (Negative) Ur Culture Indicated? Urine Test (Negative) U Opiates 300ng/mL cut Negative (Negative) Ur Oxycodone Screen Negative (Negative) Urine Methadone Screen Negative (Negative) Ur Barbiturates Screen Negative (Negative) U Tricyclic Antidepress Negative (Negative) Ur Phencyclidine Scrn Negative (Negative) Ur Amphetamines Screen Negative (Negative) U Methamphetamines Scrn Negative (Negative) Ur MDMA Scrn (Ecstasy) Negative (Negative) U Benzodiazepines Scrn Positive H (Negative) Urine Cocaine Screen Negative (Negative) U Marijuana (THC) Screen Positive H (Negative) Ethyl Alcohol ( - 10) mg/dL SARS-CoV-2 (PCR) (Negative) 11/28/21 11/28/21 Range/Units 10:20 10:20 WBC (4.5-11.0) X10^3/uL RBC (4.0-5.2) X10^6/uL Hgb (12.0-16.0) g/dL Hct (36-46) % MCV (80-100) fL MCH (26-34) PG MCHC (30-36) % RDW (11.6-14.8) % Plt Count (150-400) X10^3/uL Neut % (Auto) (50-75) % Lymph % (Auto) (25-40) % [place] % (Auto) (3-14) % Eos % (Auto) (2-4) % Baso % (Auto) (0-2) % Neut # (Auto) (1889-4725) /uL Lymph # (Auto) (2617-9731) /uL [place] # (Auto) (0-900) /uL Eos # (Auto) (0-450) /uL Baso # (Auto) (0-100) /uL Sodium (137-145) mmol/L Potassium (3.4-5.1) mmol/L Chloride (98-107) mmol/L Carbon Dioxide (22-32) mmol/L BUN (7-17) mg/dL Creatinine (0.52-1.04) mg/dL Estimated GFR (>60) mL/min BUN/Creatinine Ratio (6-22) Glucose (70-100) mg/dL Calcium (8.4-10.2) mg/dL Magnesium (1.6-2.3) mg/dL Total Bilirubin (0.2-1.3) mg/dL AST (14-36) IU/L ALT (<35) IU/L Alkaline Phosphatase (38-126) U/L Total Creatine Kinase (30-135) U/L Total Protein (6.3-8.2) g/dL Albumin (3.5-5.0) g/dL Globulin (1.7-4.1) g/dL Albumin/Globulin Ratio (1.0-2.8) TSH (0.47-4.68) uIU/mL Urine Color Yellow Urine Appearance Clear Urine pH 5.0 (4.5-8.0) Ur Specific [place] 1.020 (1.000-1.035) Urine Protein Negative (Negative) Urine Glucose (UA) Negative (Negative) g/dL Urine Ketones 3+ H (NEGATIVE) Urine Occult Blood Trace-lysed (Negative) Urine Nitrate Negative (Negative) Urine Bilirubin Negative (NEGATIVE) Urine Urobilinogen 0.2 (0.2) E.U./dL Ur Leukocyte Esterase Negative (NEGATIVE) Urine RBC 0-1/hpf (0-5/HPF) Urine WBC 0-1/hpf (0-5/HPF) Ur Squamous Epith Cells 1-5 /hpf (0-5/HPF) Urine Bacteria Many (>30) H (None) Urine Mucus 1+ H (Negative) Ur Culture Indicated? Specimen cultured Urine Test Negative (Negative) U Opiates 300ng/mL cut (Negative) Ur Oxycodone Screen (Negative) Urine Methadone Screen (Negative) Ur Barbiturates Screen (Negative) U Tricyclic Antidepress (Negative) Ur Phencyclidine Scrn (Negative) Ur Amphetamines Screen (Negative) U Methamphetamines Scrn (Negative) Ur MDMA Scrn (Ecstasy) (Negative) U Benzodiazepines Scrn (Negative) Urine Cocaine Screen (Negative) U Marijuana (THC) Screen (Negative) Ethyl Alcohol ( - 10) mg/dL SARS-CoV-2 (PCR) (Negative) MDM Narrative Medical decision making narrative: Patient has been medically cleared, this is her 3rd visit this week and she is clearly deteriorating. It is my opinion that she is gravely disabled and would benefit from inpatient psychiatric care. Patient signed out to Dr. Sheridan for final disposition <Kevin Sheridan MD - Last Filed: 11/28/21 19:28> Lab Data Labs: Lab Results 11/28/21 11/28/21 11/28/21 Range/Units 03:25 03:25 03:25 WBC 12.0 H (4.5-11.0) X10^3/uL RBC 4.20 (4.0-5.2) X10^6/uL Hgb 13.8 (12.0-16.0) g/dL Hct 40.1 (36-46) % MCV 95.3 (80-100) fL MCH 32.8 (26-34) PG MCHC 34.4 (30-36) % RDW 12.7 (11.6-14.8) % Plt Count 255 (150-400) X10^3/uL Neut % (Auto) 70.2 (50-75) % Lymph % (Auto) 18.2 L (25-40) % [place] % (Auto) 10.7 (3-14) % Eos % (Auto) 0.7 L (2-4) % Baso % (Auto) 0.2 (0-2) % Neut # (Auto) 8400 H (1519-2334) /uL Lymph # (Auto) 2200 (8698-1548) /uL [place] # (Auto) 1300 H (0-900) /uL Eos # (Auto) 100 (0-450) /uL Baso # (Auto) 0 (0-100) /uL Sodium 138 (137-145) mmol/L Potassium 3.6 (3.4-5.1) mmol/L Chloride 106 (98-107) mmol/L Carbon Dioxide 18 L (22-32) mmol/L BUN 9 (7-17) mg/dL Creatinine 0.61 (0.52-1.04) mg/dL Estimated GFR > 60.0 (>60) mL/min BUN/Creatinine Ratio 14.8 (6-22) Glucose 97 (70-100) mg/dL Calcium 10.0 (8.4-10.2) mg/dL Magnesium (1.6-2.3) mg/dL Total Bilirubin 2.1 H (0.2-1.3) mg/dL AST 24 (14-36) IU/L ALT 15 (<35) IU/L Alkaline Phosphatase 61 (38-126) U/L Total Creatine Kinase (30-135) U/L Total Protein 8.0 (6.3-8.2) g/dL Albumin 4.9 (3.5-5.0) g/dL Globulin 3.1 (1.7-4.1) g/dL Albumin/Globulin Ratio 1.6 (1.0-2.8) TSH (0.47-4.68) uIU/mL Urine Color Urine Appearance Urine pH (4.5-8.0) Ur Specific [place] (1.000-1.035) Urine Protein (Negative) Urine Glucose (UA) (Negative) g/dL Urine Ketones (NEGATIVE) Urine Occult Blood (Negative) Urine Nitrate (Negative) Urine Bilirubin (NEGATIVE) Urine Urobilinogen (0.2) E.U./dL Ur Leukocyte Esterase (NEGATIVE) Urine RBC (0-5/HPF) Urine WBC (0-5/HPF) Ur Squamous Epith Cells (0-5/HPF) Urine Bacteria (None) Urine Mucus (Negative) Ur Culture Indicated? Urine Test (Negative) U Opiates 300ng/mL cut (Negative) Ur Oxycodone Screen (Negative) Urine Methadone Screen (Negative) Ur Barbiturates Screen (Negative) U Tricyclic Antidepress (Negative) Ur Phencyclidine Scrn (Negative) Ur Amphetamines Screen (Negative) U Methamphetamines Scrn (Negative) Ur MDMA Scrn (Ecstasy) (Negative) U Benzodiazepines Scrn (Negative) Urine Cocaine Screen (Negative) U Marijuana (THC) Screen (Negative) Ethyl Alcohol < 10 ( - 10) mg/dL SARS-CoV-2 (PCR) Negative (Negative) 11/28/21 11/28/21 11/28/21 Range/Units 03:25 03:25 10:20 WBC (4.5-11.0) X10^3/uL RBC (4.0-5.2) X10^6/uL Hgb (12.0-16.0) g/dL Hct (36-46) % MCV (80-100) fL MCH (26-34) PG MCHC (30-36) % RDW (11.6-14.8) % Plt Count (150-400) X10^3/uL Neut % (Auto) (50-75) % Lymph % (Auto) (25-40) % [place] % (Auto) (3-14) % Eos % (Auto) (2-4) % Baso % (Auto) (0-2) % Neut # (Auto) (1811-5443) /uL Lymph # (Auto) (2731-9863) /uL [place] # (Auto) (0-900) /uL Eos # (Auto) (0-450) /uL Baso # (Auto) (0-100) /uL Sodium (137-145) mmol/L Potassium (3.4-5.1) mmol/L Chloride (98-107) mmol/L Carbon Dioxide (22-32) mmol/L BUN (7-17) mg/dL Creatinine (0.52-1.04) mg/dL Estimated GFR (>60) mL/min BUN/Creatinine Ratio (6-22) Glucose (70-100) mg/dL Calcium (8.4-10.2) mg/dL Magnesium 1.9 (1.6-2.3) mg/dL Total Bilirubin (0.2-1.3) mg/dL AST (14-36) IU/L ALT (<35) IU/L Alkaline Phosphatase (38-126) U/L Total Creatine Kinase 27 L (30-135) U/L Total Protein (6.3-8.2) g/dL Albumin (3.5-5.0) g/dL Globulin (1.7-4.1) g/dL Albumin/Globulin Ratio (1.0-2.8) TSH 1.05 D (0.47-4.68) uIU/mL Urine Color Urine Appearance Urine pH (4.5-8.0) Ur Specific [place] (1.000-1.035) Urine Protein (Negative) Urine Glucose (UA) (Negative) g/dL Urine Ketones (NEGATIVE) Urine Occult Blood (Negative) Urine Nitrate (Negative) Urine Bilirubin (NEGATIVE) Urine Urobilinogen (0.2) E.U./dL Ur Leukocyte Esterase (NEGATIVE) Urine RBC (0-5/HPF) Urine WBC (0-5/HPF) Ur Squamous Epith Cells (0-5/HPF) Urine Bacteria (None) Urine Mucus (Negative) Ur Culture Indicated? Urine Test (Negative) U Opiates 300ng/mL cut Negative (Negative) Ur Oxycodone Screen Negative (Negative) Urine Methadone Screen Negative (Negative) Ur Barbiturates Screen Negative (Negative) U Tricyclic Antidepress Negative (Negative) Ur Phencyclidine Scrn Negative (Negative) Ur Amphetamines Screen Negative (Negative) U Methamphetamines Scrn Negative (Negative) Ur MDMA Scrn (Ecstasy) Negative (Negative) U Benzodiazepines Scrn Positive H (Negative) Urine Cocaine Screen Negative (Negative) U Marijuana (THC) Screen Positive H (Negative) Ethyl Alcohol ( - 10) mg/dL SARS-CoV-2 (PCR) (Negative) 11/28/21 11/28/21 Range/Units 10:20 10:20 WBC (4.5-11.0) X10^3/uL RBC (4.0-5.2) X10^6/uL Hgb (12.0-16.0) g/dL Hct (36-46) % MCV (80-100) fL MCH (26-34) PG MCHC (30-36) % RDW (11.6-14.8) % Plt Count (150-400) X10^3/uL Neut % (Auto) (50-75) % Lymph % (Auto) (25-40) % [place] % (Auto) (3-14) % Eos % (Auto) (2-4) % Baso % (Auto) (0-2) % Neut # (Auto) (2472-8428) /uL Lymph # (Auto) (9318-9956) /uL [place] # (Auto) (0-900) /uL Eos # (Auto) (0-450) /uL Baso # (Auto) (0-100) /uL Sodium (137-145) mmol/L Potassium (3.4-5.1) mmol/L Chloride (98-107) mmol/L Carbon Dioxide (22-32) mmol/L BUN (7-17) mg/dL Creatinine (0.52-1.04) mg/dL Estimated GFR (>60) mL/min BUN/Creatinine Ratio (6-22) Glucose (70-100) mg/dL Calcium (8.4-10.2) mg/dL Magnesium (1.6-2.3) mg/dL Total Bilirubin (0.2-1.3) mg/dL AST (14-36) IU/L ALT (<35) IU/L Alkaline Phosphatase (38-126) U/L Total Creatine Kinase (30-135) U/L Total Protein (6.3-8.2) g/dL Albumin (3.5-5.0) g/dL Globulin (1.7-4.1) g/dL Albumin/Globulin Ratio (1.0-2.8) TSH (0.47-4.68) uIU/mL Urine Color Yellow Urine Appearance Clear Urine pH 5.0 (4.5-8.0) Ur Specific [place] 1.020 (1.000-1.035) Urine Protein Negative (Negative) Urine Glucose (UA) Negative (Negative) g/dL Urine Ketones 3+ H (NEGATIVE) Urine Occult Blood Trace-lysed (Negative) Urine Nitrate Negative (Negative) Urine Bilirubin Negative (NEGATIVE) Urine Urobilinogen 0.2 (0.2) E.U./dL Ur Leukocyte Esterase Negative (NEGATIVE) Urine RBC 0-1/hpf (0-5/HPF) Urine WBC 0-1/hpf (0-5/HPF) Ur Squamous Epith Cells 1-5 /hpf (0-5/HPF) Urine Bacteria Many (>30) H (None) Urine Mucus 1+ H (Negative) Ur Culture Indicated? Specimen cultured Urine Test Negative (Negative) U Opiates 300ng/mL cut (Negative) Ur Oxycodone Screen (Negative) Urine Methadone Screen (Negative) Ur Barbiturates Screen (Negative) U Tricyclic Antidepress (Negative) Ur Phencyclidine Scrn (Negative) Ur Amphetamines Screen (Negative) U Methamphetamines Scrn (Negative) Ur MDMA Scrn (Ecstasy) (Negative) U Benzodiazepines Scrn (Negative) Urine Cocaine Screen (Negative) U Marijuana (THC) Screen (Negative) Ethyl Alcohol ( - 10) mg/dL SARS-CoV-2 (PCR) (Negative) Discharge Plan Departure Patient Disposition: Xfer Psychiatric Hosp Clinical Impression: Anxiety and depression Referrals: Yola Alberts ND [Primary Care Provider] -
[2021-11-28 03:38] LABS: Add Manual Diff / Slide Review NO; Basophils Absolute Auto 0 /uL (0-100); Basophils Percent Auto 0.2 % (0-2); Eosinophils Absolute Auto 100 /uL (0-450); Eosinophils Percent Auto 0.7 % (2-4); Hematocrit 40.1 % (36-46); Hemoglobin 13.8 g/dL (12.0-16.0); Lymphocytes Absolute Auto 2200 /uL (1100-4500); Lymphocytes Percent Auto 18.2 % (25-40); Mean Corpuscular HGB Conc 34.4 % (30-36); Mean Corpuscular Hemoglobin 32.8 PG (26-34); Mean Corpuscular Volume 95.3 fL (80-100); Monocytes Absolute Auto 1300 /uL (0-900); Monocytes Percent Auto 10.7 % (3-14); Neutrophils Absolute Auto 8400 /uL (1500-7000); Neutrophils Percent Auto 70.2 % (50-75); Platelet Count 255 X10^3/uL (150-400); Red Cell Distribution Width 12.7 % (11.6-14.8)
[2021-11-28] MEDS: SODIUM CHLORIDE 0.9% 1,000 ML 1000 ML IV (03:38)
[2021-11-28] MEDS: LORazepam 2 MG/ML INJ 0.5 MG IV (03:38)
[2021-11-28 03:44] LABS: Alanine Aminotransferase 15 IU/L (<35); Albumin 4.9 g/dL (3.5-5.0); Albumin Globulin Ratio 1.6 (1.0-2.8); Alkaline Phosphatase 61 U/L (38-126); Aspartate Aminotransferase 24 IU/L (14-36); BUN Creatinine Ratio 14.8 (6-22); Bilirubin Total 2.1 mg/dL (0.2-1.3); Blood Urea Nitrogen 9 mg/dL (7-17); Carbon Dioxide 18 mmol/L (22-32); Chloride 106 mmol/L (98-107); Estimated Glomerular Filt Rate > 60.0 mL/min (>60); Ethanol (ETOH) < 10 mg/dL; Globulin 3.1 g/dL (1.7-4.1); Glucose 97 mg/dL (70-100); HEMOLYSIS 21 (0-50); Potassium 3.6 mmol/L (3.4-5.1); Sodium 138 mmol/L (137-145)
[2021-11-28 07:46] LABS: COVID19 -Nasal RAPID Negative (Negative)
[2021-11-28 10:29] LABS: Appearance Urine UA CLEAR; Bilirubin Urine UA NEGATIVE (NEGATIVE); Color Urine UA YELLOW; Glucose Urine UA NEGATIVE (Negative); Ketones Urine UA 3+ (NEGATIVE); Leukocyte Esterase Urine UA NEGATIVE (NEGATIVE); Nitrite Urine UA NEGATIVE (Negative); Occult Blood Urine UA TRACE-LYSED (Negative); Protein Urine UA NEGATIVE (Negative); Urobilinogen Urine UA 0.2 E.U./dL (0.2)
[2021-11-28 10:42] LABS: Pregnancy Test Urine Negative (Negative); UR Morphine/Opiate cutoff 300 Negative (Negative); Ur Creatinine Normal (Normal); Ur Specific Gravity Normal (Normal); Urine Amphetamines Negative (Negative); Urine Barbiturates Negative (Negative); Urine Benzodiazepines Positive (Negative); Urine Cocaine Negative (Negative); Urine MDMA Negative (Negative); Urine Methadone Negative (Negative); Urine Methamphetamines Negative (Negative); Urine Oxycodone Negative (Negative); Urine Phencyclidine Negative (Negative); Urine Tetrahydrocannabinol Positive (Negative); Urine Tricyclic Antidepressant Negative (Negative); Urine pH Normal (Normal)
[2021-11-28 10:48] LABS: Bacteria Urine Many (>30); Culture Indicated Urine Specimen Cultured; Mucus Urine 1+ (Negative); RBC Urine 0-1/HPF (0-5/HPF); Squamous Epithelial Cell Urine 1-5 /HPF (0-5/HPF); WBC Urine 0-1/HPF (0-5/HPF)
--- NOTE | 2021-11-28 11:59 | PC.NURSE ---
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
--- NOTE | 2021-11-28 12:43 | CM.SWNOTE ---
INTERACTIVE MULTIMEDIA DESIGNER Assessment INTERACTIVE MULTIMEDIA DESIGNER - Best Worker Assessment INTERACTIVE MULTIMEDIA DESIGNER/Best Worker Assessment Time Spent with Patient Start date 11/28/21 Visit Start Time 11:45 End date 11/28/21 Visit End Time 12:15 Total time Care Management spent on 30 patient visit-in minutes Mental Health Screening Include Onset, Duration, Intensity Presenting Problem Patient presents to the ED for the 3rd time in a week due to concerns for Anxiety and high heart rate. Precipitating Event(s) Patient endorses stopping THC use and ETOH use within 2 weeks ago. Patient endorses she is out of work and looking for employment. Patient endorses significant anxiety since July. Patient Strengths Patient has good support system from and patient is seeking help. Current Behavioral Health Provider(s) No current providers. Patient Include Facility, Provider, Ph. # is seeking MH therapist and psychiatrist. Psych. Hx Mental Health and Chemical Patient has hx of Anxiety and Dependency PCP suspects dx of ADD and Panic Disorder. Patient is seeking psychiatrist to get formal dx. Patient endorses hx of daily THC and ETOH use until a week or two ago. Patient denies any other substances. Patient endorse rx for Gabapentin 100mg and Propanolol [address] Yola Alberts (Ph. # [phone]) Family Hx of Behavioral Abuse None reported Psychiatric Hospitalizations (date(s)/ No hx. location) Psychosocial information & Support Patient is 26 y/o female who Systems resides in [place]. Patient' s is main support but he works out of town most of the week and patient spends time alone. School/Work Unemployed Legal Concerns Legal Matters - Outstanding Issues None reported Mental Status Orientation (Person/Place/Time) A/Ox4 Stated Mood tired Affect (Congruent with Mood?) Anxious, full range, congruent with mood. Patient very tearful at times when discussing SI. Thought Content - Specify/Describe Patient denies thought content Obsessions, Delusions, Hallucinations . Thought Processes (Jnpbsho-Tnecyzqw-Gnnv circumstantial Kwmxudfn-Rmweuyka-Fszxtmbwuj- Quttgwdhnnpgzc-Wbzzbcd-Qzidpcubwbnf- Thought Blocking) Speech (Elqxcx-Umco-Kllvtkj-Rapid-Soft- slow/normal Loud-Pressured) Motor (Xarykm-Qvlemfcnv-Wmja-Other) slow, not formally assessed. Patient in upright position on bed, INTERACTIVE MULTIMEDIA DESIGNER observes no significant movement and observes patient's heart increase a few times during trigging content questions in the assessment Insight (Vevm-Oabq-Zwvl/Limited) fair/limited due to anxiety Judgement (Lawn-Tzzt-Iqmk/Limited) fair/limited due to anxiety Impulse Control (Adequate-Impaired) adequate during assessment Memory (Paszbrdqq-Jgqdoq-Vemqgw, intact, not formally assessed Impaired-Intact) Concentration (Intact-Impaired) intact Attention (Intact-Impaired) intact Behavior (Appropriate-Inappropriate) appropriate Additional Comment Patient is communicative. Risk Assessment Suicidal Ideation (Plan) Yes Homicidal Ideation (Plan) No Comment Patient denies HI. Patient endorses SI over the last week due to her overwhelming and exhausting symptoms. Patient denies plan but states that SI has intensified and she has such thoughts 24/05. Patient endorses hx of harming self by hitting head against the wall on three occasions this year but patient denies recent self harm. Intervention Intervention INTERACTIVE MULTIMEDIA DESIGNER enters room to meet with patient. Present in room with patient is patient's . Patient provides consent for to be present. Patient endorses significant hx of high heart rate, SOB, tremors and dizziness over the last week. Patient endorses feeling fatigued and exhausted . Patient endorses hopelessness due to overwhelming anxiety. Patient endorses significant SI without plan every day 24/05 over the last week. Patient endorses she feels unsafe being alone at home. Patient endorses that her PCP has contacted inpatient hospitals in effort to seek bed for patient to initiate referral. Patient endorses her agreement and interest in voluntary inpatient hospitalization. Patient endorses that she has struggled with anxiety for most of her life but it has been unbearable this last week due to symptoms. Patient endorses that she has been seeking a provider, psychiatrist and going to PCP regularly since July to address anxiety. It is the opinion of this INTERACTIVE MULTIMEDIA DESIGNER that patient will benefit from voluntary inpatient hospitalization to address patient's significant anxiety that is impacting her daily life. It is the opinion of this INTERACTIVE MULTIMEDIA DESIGNER that patient will benefit from stabilization, medication management and safety. INTERACTIVE MULTIMEDIA DESIGNER reviews the above with ED provider Dr. Sheridan who indicates agreement and understanding. Plan RA Plan INTERACTIVE MULTIMEDIA DESIGNER to seek inpatient bed for patient when medically clear. MARTIN Pizarro
[2021-11-28 16:29] LABS: Creatine Kinase 27 U/L (30-135); Magnesium 1.9 mg/dL (1.6-2.3)
--- NOTE | 2021-11-28 16:58 | CM.SWNOTE ---
NUMBERER AND WIRER Note NUMBERER AND WIRER calls [facility], they state they have beds and can review patient. NUMBERER AND WIRER faxes clinicals for review. NUMBERER AND WIRER calls [facility], they state they can review patient and request TSH, CPK and Mag labs. NUMBERER AND WIRER faxes clinicals for review. [facility] states that an acute patient entered their ED and they no longer have beds for patient. NUMBERER AND WIRER calls [facility] intake who reports they have beds and can review but request insurance pre-auth. NUMBERER AND WIRER attempts to get pre-auth. NUMBERER AND WIRER receives call from [facility] forestry workers[employer]. It was reported that patient was accepted by provider Dr. Perez at the [address] [place] [address]. Patient's ETA is 100 AM. It was reported that patient needs to arrive by EMS. Nurse to nurse PH. # [phone] Plan: patient to transfer to [facility] for voluntary inpatient hospitalization. MARTIN Pizarro
[2021-11-28 16:59] LABS: TSH w/ Reflex to FT4 1.05 uIU/mL (0.47-4.68)
== END 2021-11-28 23:05 ==
PROVIDERS: Emergency Medicine; Emergency Provider Emergency Medicine; PCP Naturopath
DX: F41.9 Anxiety disorder, unspecified (principal); F32.A Depression, unspecified; Z20.822 Contact with and (suspected) exposure to COVID-19
CPT/HCPCS: 80053; 80305; 80320; 81001; 81025; 82550; 83735; 84443; 85025; 87086; 87635; 93005; 96361; 96374; 99284; C9803; J2060

== ENCOUNTER 2024-10-10 04:18 | Observation (INO) | payer BC, SELFPAY ==
[2024-10-10] VITALS (20 sets, daily range): BP systolic 107–140; BP diastolic 59–82; PULSE 75–98; RESP 12–24; TEMP 36.7–37.1; O2SAT 91–100; BMI 20.4
--- NOTE | 2024-10-10 04:47 | ED.ABDPAIN ---
HPI - Abdominal Pain General Chief Complaint: Nausea/Vomiting/Diarrhea Stated Complaint: abd pain, can't keep fluids down Time Seen by Provider: 10/10/24 04:33 History of Present Illness HPI narrative: 29-year-old female denies history of abdominal pelvic surgeries, complains of epigastric area discomfort since 9:00 p.m. yesterday, some nausea no emesis. No black or red stools, no recent loose stools. History of prior abdominal problems, previously apparently worked up by a naturopathic provider, believes that she has had ?chronic H.pylori? diagnosis in the past but apparently has not had any upper endoscopy evaluation, no course of anti-Hpylori antibiotics recalled. History of oral Tejal problems in the past, no immunodeficiency chronic problems known, has taken oral nystatin in the past, no chart history of HIV or other immune compromise conditions, no chemotherapy or chronic/recent oral steroids. She tried 200 mg madx-uck-yruhyls oral ibuprofen dose. She denies painful urination or frequency of urination. Not known to be at this time. Reports history of prior lower colonoscopy evaluation, no specific diagnosis recalled. Related Data Home Medications Medication Instructions Recorded Confirmed Magnesium Bisglycinate 1 cap PO DAILY 10/10/24 10/10/24 Rhodiola Rosea 1 cap PO DAILY 10/10/24 10/10/24 cod liver oil 1 cap PO DAILY 10/10/24 10/10/24 Allergies Allergy/AdvReac Type Severity Reaction Status Date / Time No Known Drug Allergies Allergy Verified 11/27/21 09:53 Review of Systems Review of Systems Narrative: see HPI Patient History Medical History (Updated 10/10/24 @ 18:14 by Favian Morgan MD) Dysautonomia Anxiety Palpitations Social History household members: spouse Smoking Status: Never smoker alcohol intake: never Smoking Status: Never smoker alcohol intake frequency: 3 or more drinks per day Exam Narrative Exam Narrative: GENERAL: Well-developed patient, in mild distress. HEAD: Atraumatic. Normocephalic. EYES: Pupils equal round and reactive. Extraocular motions intact. No scleral icterus. No injection or drainage. ENT: Nose without bleeding, purulent drainage. Throat without erythema, tonsillar hypertrophy or exudate. Airway patent. NECK: Trachea midline. Non tender CARDIOVASCULAR: Regular rate and rhythm without murmurs, gallops, or rubs. RESPIRATORY: Clear to auscultation. Breath sounds equal bilaterally. No wheezes, rales, or rhonchi. GASTROINTESTINAL: Abdomen soft, some epigastric periumbilical tenderness, no guarding/rebound, no skin redness or vesciles or warmth, no obvious ventral hernias EXTREMITIES: No edema or joint tenderness. BACK: Nontender without deformity or crepitance. No flank tenderness. NEURO: AOx3. Motor functions grossly nonfocal SKIN: No rash or erythema of visible areas Initial Vital Signs Initial Vital Signs: Vital Signs Temperature 98.1 F 10/10/24 04:40 Pulse Rate 86 10/10/24 04:40 Respiratory Rate 20 10/10/24 04:40 Blood Pressure 140/63 10/10/24 04:40 Pulse Oximetry 98 10/10/24 04:40 Oxygen Delivery Method Room Air 10/10/24 04:40 Course Orders Ordered: Acetaminophen (Acetaminophen 325 Mg Tablet) 650 mg PO Q6H PRN PRN Reason: Fever/Mild Pain (1-3) Famotidine (Famotidine 20 Mg/2 Ml Vial) 20 mg IV NOW ON LICENSE OF [facility] Last Admin: 10/10/24 05:00 Dose: 20 mg Documented By: CHU Hydromorphone HCl (Hydromorphone 1 Mg Inj) 0.5 mg IV Q2H PRN PRN Reason: Pain,Severe Sodium Chloride (Normal Saline 0.9%) 1,000 mls @ 100 mls/hr IV CONT ON LICENSE OF [facility] Last Admin: 10/10/24 22:41 Dose: 100 mls/hr Documented By: Infusion: 10/10/24 22:41 Dose: Infused Documented By: Admin: 10/10/24 13:05 Dose: 100 mls/hr Documented By: Infusion: 10/10/24 11:30 Dose: Infused Documented By: Admin: 10/10/24 09:11 Dose: 100 mls/hr Documented By: DEB Piperacillin Sod/Tazobactam (Sod 3.375 gm/ Sodium Chloride) 100 mls @ 25 mls/hr IV Q8H ON LICENSE OF [facility] Stop: 10/13/24 16:59 Last Infusion: 10/11/24 00:07 Dose: Infused Documented By: Admin: 10/10/24 20:07 Dose: 25 mls/hr Documented By: Infusion: 10/10/24 17:04 Dose: Infused Documented By: Admin: 10/10/24 13:04 Dose: 25 mls/hr Documented By: IQRA Ibuprofen (Ibuprofen 600 Mg Tablet) 600 mg PO Q6H PRN PRN Reason: Fever/Mild Pain (1-3) Morphine Sulfate (Morphine 2 Mg/Ml Inj) 2 mg IV Q4HR PRN PRN Reason: Pain, Severe (7-10) Last Admin: 10/10/24 21:35 Dose: 2 mg Documented By: Admin: 10/10/24 11:58 Dose: 2 mg Documented By: IQRA Naloxone HCl (Naloxone 0.4 Mg/Ml Vial) 0.2 mg IV Q2MIN PRN PRN Reason: Opiate Reversal Nf - Magnesium (Bisglycinate 1 Cap) 1 cap PO DAILY EFFIE Ondansetron HCl (Ondansetron 4 Mg/2 Ml Inj) 4 mg IV Q6HR PRN PRN Reason: Nausea And Vomiting Last Admin: 10/10/24 14:08 Dose: 4 mg Documented By: IQRA Oxycodone HCl (Oxycodone Ir 5 Mg Tablet) 5 mg PO Q3H PRN PRN Reason: Pain, Moderate (4-6) Discontinued Medications Hydrocodone Bitart/Acetaminophen (Hydrocodone/Acet 5/325 Prepack) 1 bottle MISC DIRECTED ONE Stop: 10/10/24 06:37 Last Admin: 10/10/24 06:49 Dose: Not Given Documented By: CHU Al Hydrox/Mg Hydrox/Simethicone 20 ml/ Lidocaine HCl 15 ml 0 ml PO NOW ONE Stop: 10/10/24 04:56 Last Admin: 10/10/24 05:00 Dose: 35 ml Documented By: CHU Hydromorphone HCl (Hydromorphone 0.5 Mg Inj) 0.5 mg IV NOW ONE Stop: 10/10/24 06:21 Last Admin: 10/10/24 06:27 Dose: 0.5 mg Documented By: CHU Ceftriaxone Sodium 1,000 mg/ (Sodium Chloride) 100 mls @ 200 mls/hr IV NOW ONE Stop: 10/10/24 05:30 Last Admin: 10/10/24 07:30 Dose: Not Given Documented By: DEB Sodium Chloride (Normal Saline 0.9%) 1,000 mls @ 1,000 mls/hr IV BOLUS ONE Stop: 10/10/24 06:45 Last Infusion: 10/10/24 07:44 Dose: Infused Documented By: Admin: 10/10/24 06:25 Dose: 1,000 mls/hr Documented By: CHU Piperacillin Sod/Tazobactam (Sod 4.5 gm/ Sodium Chloride) 100 mls @ 200 mls/hr IV NOW ONE Stop: 10/10/24 06:50 Last Infusion: 10/10/24 08:50 Dose: Infused Documented By: Admin: 10/10/24 07:47 Dose: 200 mls/hr Documented By: DEB Piperacillin Sod/Tazobactam (Sod 3.375 gm/ Sodium Chloride) 100 mls @ 25 mls/hr IV Q8H EFFIE Stop: 10/13/24 09:16 Piperacillin Sod/Tazobactam (Sod 3.375 gm/ Sodium Chloride) 100 mls @ 25 mls/hr IV Q8H EFFIE Stop: 10/13/24 15:59 Last Admin: 10/10/24 12:39 Dose: Not Given Documented By: IQRA Metoclopramide HCl (Metoclopramide 10 Mg/2 Ml Inj) 10 mg IV NOW ONE Stop: 10/10/24 08:51 Last Admin: 10/10/24 08:56 Dose: 10 mg Documented By: DEB Morphine Sulfate (Morphine 4 Mg/Ml Inj) 4 mg IV NOW ONE Stop: 10/10/24 09:06 Last Admin: 10/10/24 09:10 Dose: 2 mg Documented By: DBE Ondansetron HCl (Ondansetron 4 Mg/2 Ml Inj) 4 mg IV NOW ONE Stop: 10/10/24 04:43 Last Admin: 10/10/24 04:58 Dose: 4 mg Documented By: CHU Ondansetron HCl (Ondansetron 4 Mg/2 Ml Inj) 4 mg IV NOW ONE Stop: 10/10/24 07:57 Last Admin: 10/10/24 07:59 Dose: 4 mg Documented By: DEB Vital Signs Vital signs: Vital Signs - 8 hr 10/10/24 08:30 10/10/24 08:30 10/10/24 09:00 Pulse Rate 83 80 Respiratory Rate 20 18 Blood Pressure 114/70 Pulse Oximetry 100 100 10/10/24 09:00 10/10/24 09:30 10/10/24 09:30 Pulse Rate 77 Respiratory Rate 14 Blood Pressure 120/59 L 108/70 Pulse Oximetry 98 MDM - Abdominal Pain Lab Data Attestation: I reviewed the patient's lab results. Lab results narrative: White blood cell count 46359, hemoglobin 14, platelets [id number], basic metabolic panel normal. Liver functions unremarkable. Lipase normal. HCG negative. Urine dip test negative. Procalcitonin not elevated. 10/10/24 17:40 10/10/24 04:45 Labs: Lab Results 10/10/24 10/10/24 10/10/24 Range/Units 04:45 07:05 07:50 WBC 20.6 H (4.5-11.0) X10^3/uL RBC 4.47 (4.0-5.2) X10^6/uL Hgb 14.1 (12.0-16.0) g/dL Hct 41.7 (36-46) % MCV 93.2 (80-100) fL MCH 31.4 (26-34) PG MCHC 33.7 (30-36) % RDW 13.4 (11.6-14.8) % Plt Count 285 (150-400) X10^3/uL Neut % (Auto) 80.6 H (50-75) % Lymph % (Auto) 9.5 L (25-40) % Nolan % (Auto) 9.3 (3-14) % Eos % (Auto) 0.4 L (2-4) % Baso % (Auto) 0.2 (0-2) % Neut # (Auto) 41412 H (4327-9431) /uL Lymph # (Auto) 2000 (3379-3224) /uL Nolan # (Auto) 1900 H (0-900) /uL Eos # (Auto) 100 (0-450) /uL Baso # (Auto) 0 (0-100) /uL Sodium 139 (137-145) mmol/L Potassium 3.6 (3.4-5.1) mmol/L Chloride 106 (98-107) mmol/L Carbon Dioxide 18 L (22-32) mmol/L BUN 18 H (7-17) mg/dL Creatinine 0.64 (0.52-1.04) mg/dL Estimated GFR > 60 (>60) mL/min BUN/Creatinine Ratio 28.1 H (6-22) Glucose 129 H (70-100) mg/dL Lactate 3.5 H 1.4 (0.7-2.1) mmol/L Calcium 10.0 (8.4-10.2) mg/dL Total Bilirubin 1.2 (0.2-1.3) mg/dL AST 28 (14-36) IU/L ALT 22 (<35) IU/L Alkaline Phosphatase 57 (38-126) U/L Total Protein 7.9 (6.3-8.2) g/dL Albumin 5.0 (3.5-5.0) g/dL Globulin 2.9 (1.7-4.1) g/dL Albumin/Globulin Ratio 1.7 (1.0-2.8) Lipase 80 (23-300) U/L Procalcitonin 0.057 (<0.5) ng/mL HCG, Quant < 2.39 mIU/mL Ur Chlamydia DNA (PCR) Not detected N gonorrhoeae DNA (PCR) Not detected Point of care testing: Urine Dip Bedside Urine Glucose Negative Bedside Urine Bilirubin - Negative Bedside Urine Ketone ++ 40 Urine Specific [place] 1.010 Bedside Urine Occult Blood - Negative Bedside Urine pH 6.0 Bedside Urine Protein - Negative Bedside Urine Urobilinogen - Negative Bedside Urine Nitrite - Negative Bedside Urine Leukocytes - Negative Esterase MDM Narrative Medical decision making narrative: 29-year-old female with epigastric area discomfort since last night, history of prior lower endoscopy, apparently no upper endoscopy, reports history of H pylori infection but apparently not diagnosed by upper endoscopy, nor any course of antibiotics recalled. Afebrile on triage, sirs screen negative. Some epigastric area discomfort without guarding or rebound, no distention. Screening labs pending, including hCG and lipase. GI cocktail trial, IV Pepcid. White blood cell count [id number], lactate elevated, blood cultures requested, IV ceftriaxone ordered but patient seems reluctant to start antibiotics at this time. Await hCG results. HCG negative. Renal function adequate. CT abdomen and pelvis imaging ordered. Patient agreeable. CT abdomen and pelvis. Impressions: ?Inflammatory changes are noted in the right lower quadrant. Two loops of bowel in the right lower quadrant or noted, 1 is slightly dilated up to 1.2 cm and fluid-filled, and a 2nd loop of bowel adjacent to this has mucosal hyperemia and wall thickening, dilated up to 1.5 cm. It is unclear if 1 of these reflect the terminal ileum in the other the appendix, can not definitively trace these to determine if they connect with the cecum and if they are blind ending. There is also a right-sided corpus luteum and right-sided adnexal free fluid reflecting recent ovulation, which compounds the difficult visualization in the right lower quadrant. Overall findings are concerning for an acute appendicitis in the proper clinical setting.. although enteritis/terminal ileitis and recent ovulation or also considered. See teleradiology report Urine chlamydia negative, urine GC negative. IV Zosyn antibiotic ordered, if patient will allow initiation of antibiotics (had refused early/prior Ceftriaxone). We discussed the importance of antibiotics in case there is appendicitis to help prevent rupture and further complications. 0650, case discussed with surgery Dr. Shelton, he is coming off call, states that either he or Dr. Morgan will consult, possible laparoscopy, keep NPO, agrees with IV Zosyn ordered. 0715, awaiting surgery consult call back, signed out to oncoming ED shift physician Dr. Carrion Discharge Plan Departure Patient Disposition: Admitted As Inpatient Clinical Impression: Appendicitis, Leukocytosis Abdominal pain Qualifiers: Abdominal location: lower abdomen, unspecified Qualified Code(s): R10.30 - Lower abdominal pain, unspecified Admit Date/Time: 10/10/24 09:58 Admit Provider: Favian Morgan
[2024-10-10] MEDS: ONDANSETRON 4 MG/2 ML INJ IV ×3 (04:58→14:08)
[2024-10-10] MEDS: FAMOTIDINE 20 MG/2 ML VIAL IV (05:00)
[2024-10-10] MEDS: MAG HYDROX/ALUMINUM/SIMETH SUS 20 ML, LIDOCAINE VISCOUS 2% 15 ML PO (05:00)
[2024-10-10 05:04] LABS: Add Manual Diff / Slide Review NO; Basophils Absolute Auto 0 /uL (0-100); Basophils Percent Auto 0.2 % (0-2); Eosinophils Absolute Auto 100 /uL (0-450); Eosinophils Percent Auto 0.4 % (2-4); Hematocrit 41.7 % (36-46); Hemoglobin 14.1 g/dL (12.0-16.0); Lymphocytes Absolute Auto 2000 /uL (1100-4500); Lymphocytes Percent Auto 9.5 % (25-40); Mean Corpuscular HGB Conc 33.7 % (30-36); Mean Corpuscular Hemoglobin 31.4 PG (26-34); Mean Corpuscular Volume 93.2 fL (80-100); Monocytes Absolute Auto 1900 /uL (0-900); Monocytes Percent Auto 9.3 % (3-14); Neutrophils Absolute Auto 16600 /uL (1500-7000); Neutrophils Percent Auto 80.6 % (50-75); Platelet Count 285 X10^3/uL (150-400); Red Blood Cell Count 4.47 X10^6/uL (4.0-5.2); Red Cell Distribution Width 13.4 % (11.6-14.8); White Blood Cell Count 20.6 X10^3/uL (4.5-11.0)
[2024-10-10 05:16] LABS: Alanine Aminotransferase 22 IU/L (<35); Albumin Globulin Ratio 1.7 (1.0-2.8); Alkaline Phosphatase 57 U/L (38-126); Aspartate Aminotransferase 28 IU/L (14-36); BUN Creatinine Ratio 28.1 (6-22); Bilirubin Total 1.2 mg/dL (0.2-1.3); Blood Urea Nitrogen 18 mg/dL (7-17); Carbon Dioxide 18 mmol/L (22-32); Chloride 106 mmol/L (98-107); Estimated Glomerular Filt Rate > 60 mL/min (>60); Globulin 2.9 g/dL (1.7-4.1); Glucose 129 mg/dL (70-100); HEMOLYSIS < 15 (0-50); Lipase 80 U/L (23-300); Potassium 3.6 mmol/L (3.4-5.1); Sodium 139 mmol/L (137-145); Total Protein 7.9 g/dL (6.3-8.2)
[2024-10-10 05:19] LABS: Lactate (Lactic Acid) 3.5 mmol/L (0.7-2.1)
[2024-10-10 05:36] LABS: HCG Quantitative /Beta subunit < 2.39 mIU/mL
--- NOTE | 2024-10-10 05:39 | DI.CT.S_ITS ---
PROCEDURE: CT ABDOMEN PELVIS W CON INDICATIONS: Upper abdominal pain, leukocytosis, elev lactate, hCG neg TECHNIQUE: After the administration of intravenous contrast, axial sections acquired from the lung bases to the pubic symphysis. Coronal and sagittal reformats were performed. For radiation dose reduction, the following was used: automated exposure control, adjustment of mA and/or kV according to patient size. COMPARISON: None. FINDINGS: Image quality: Diagnostic. Lower Chest: No significant findings. ABDOMEN: Liver: No solid mass. Moderate generalized periportal edema. Gallbladder: No wall thickening or calcified stones. Biliary ducts: No biliary dilation. Pancreas: Normal size and morphology without visible ductal dilatation or inflammation. Spleen: Size is within normal limits. Adrenal Glands: No adrenal nodules. Kidneys and Ureters: Symmetric enhancement. No nephrolithiasis or hydronephrosis. No hydroureter. Stomach and Bowel: The appendix is not definitively seen. The terminal ileum contains fluid and demonstrates moderate mural hyperemia. There are no localized inflammatory changes of fat stranding in the region of the cecum. The stomach and majority of the small bowel is decompressed. There are a few loops of small bowel in the pelvis demonstrating mild mural thickening and containing small amount of fluid. The colon is normal. Peritoneum: No pathologic fluid. No free air. Ventral Wall: No significant ventral hernia. Abdominal Nodes: No retroperitoneal or mesenteric adenopathy by size criteria. Vessels: The abdominal aorta, IVC, and portal vein are of normal caliber. PELVIS: Pelvic Organs: There is a peripherally hypervascular corpus luteum cyst in the right ovary with a moderate amount of surrounding fluid. Anteverted uterus and left ovary appear normal. Bladder: Decompressed. No significant wall thickening or stone. Pelvic Nodes: No enlarged lymph nodes. Miscellaneous: No inguinal hernias are seen. Bones: No aggressive osseous abnormality. IMPRESSION: The appendix is not convincingly identified. There are changes of recent corpus luteum cyst rupture in the right adnexa with surrounding fluid. Mural thickening and hyperemia of a few nondilated pelvic bowel loops may be reactive or may indicate enteritis. Clinical correlation recommended. Final interpretation is concordant with preliminary report. Dictated by: Glendy Garcia M.D. on 10/10/2024 at 8:55 Approved by: Glendy Garcia M.D. on 10/10/2024 at 9:07
[2024-10-10] MEDS: SODIUM CHLORIDE 0.9% 1,000 ML 1000 ML IV (06:25)
[2024-10-10] MEDS: HYDROMORPHONE 0.5 MG INJ IV (06:27)
[2024-10-10 06:47] LABS: Procalcitonin 0.057 ng/mL (<0.5); Reflexed Lactate in 2 Hours Y
[2024-10-10 07:26] LABS: Lactate 2HR (Lactic Acid Rflx) 1.4 mmol/L (0.7-2.1)
[2024-10-10] MEDS: PIPERACILLIN/TAZO 4.5 GM in SODIUM CHLORIDE 0.9% 100 ML IV (07:47)
[2024-10-10] MEDS: METOCLOPRAMIDE 10 MG/2 ML INJ IV (08:56)
[2024-10-10] MEDS: MORPHINE 4 MG/ML INJ IV (09:10)
[2024-10-10] MEDS: SODIUM CHLORIDE 0.9% 1,000 ML 100 ML IV ×3 (09:11→22:41)
[2024-10-10 09:27] LABS: Urine N gonorrhoeae NOT DETECTED
[2024-10-10 09:33] LABS: Urine Chlamydia NOT DETECTED
--- NOTE | 2024-10-10 10:16 | PC.NURSE ---
shift report at 0745, rounded on patient. appears uncomfortable. medicated per MAR for nausea and pain. ABX infused. IVF infusing at controlled rate. appears more comfortable and resting eyes closed with equal rise and fall of chest. partner in room.
[2024-10-10] MEDS: MORPHINE 2 MG/ML INJ IV ×2 (11:58→21:35)
[2024-10-10] MEDS: PIPERACILLIN/TAZO 3.375 GM in SODIUM CHLORIDE 0.9% 100 ML IV ×2 (13:04→20:07)
--- NOTE | 2024-10-10 13:18 | DI.US.S_ITS ---
PROCEDURE: US PELVIC COMPLETE INDICATIONS: PAIN TECHNIQUE: Real-time scanning was performed of the pelvic organs, with image documentation. Additional endovaginal scanning was necessary due to incomplete visualization of the adnexal and endometrial structures by transabdominal scanning. COMPARISON: [facility], CT, CT ABDOMEN PELVIS W CON, 10/10/2024, 5:48. FINDINGS: Uterus: Uterus is anteverted and normal in size at 7.5 x 3.7 x 5.7 cm. The myometrium is homogeneous. The endometrium measures 11 mm combined thickness. Ovaries: The right ovary measures 4.6 x 3.8 x 3.2 cm, with a calculated ovarian volume of 29.2 cc. The left ovary measures 1.5 x 3.2 x 1.7 cm, with a calculated ovarian volume of 4.0 cc. Involuting right ovarian cyst measuring 1.6 x 1.5 x 1.8 cm. Other: No pathologic free abdominal or pelvic fluid. IMPRESSION: Involuting right ovarian cyst. We strive to produce accurate, complete, and clear reports of imaging services. To assist us in improving patient care, this report was composed using standard report templates and voice recognition software. Therefore, it may contain abnormal punctuation, insertions and/or omissions. Occasional wrong-word or sound-alike substitutions may occur. Though we review the report and make efforts to correct it, we do recommend that the report be read carefully in proper context to recognize any text inaccuracies. Dictated by: Shyann Nassar M.D. on 10/10/2024 at 15:03 Approved by: Shyann Nassar M.D. on 10/10/2024 at 15:04
--- NOTE | 2024-10-10 14:36 | PC.NURSE ---
1310--Dr Morgan here to see pt; he said CT did not show the need for appendectomy; spoke w/ pt and at length; questions answered; pelvic US ordered and he was going to consult OB Dr Phoenix
--- NOTE | 2024-10-10 15:37 | PM.CN ---
History of Present Illness Consult details Date Patient Seen: 10/10/24 Time Patient Seen: 15:38 Chief complaint: abd pain, can't keep fluids down Reason for consult: Right lower quadrant pain Requesting provider: Favian Morgan Narrative: 29-year-old female admitted from the ER early this morning for abdominal pain. She states that her pain gradually onset around 9:00 p.m. last night, and continued to intensify through the night. Her pain was originally in her lower abdomen, and then radiated to her epigastric region. She had some nausea associated as well. Her LMP was 09/19/24. She reports chronic constipation. Has noted some discomfort with urination today. Denies any other acute illnesses in the last week. Denies fever or chills. Meds Home Medications and Allergies Home Medications Medication Instructions Recorded Confirmed Type Magnesium Bisglycinate 1 cap PO DAILY 10/10/24 10/10/24 History Rhodiola Rosea 1 cap PO DAILY 10/10/24 10/10/24 History cod liver oil 1 cap PO DAILY 10/10/24 10/10/24 History Allergies Allergy/AdvReac Type Severity Reaction Status Date / Time No Known Drug Allergies Allergy Verified 11/27/21 09:53 Review of Systems Review of Systems ROS: Yes All systems reviewed with the patient and are negative except as otherwise documented Exam Vital Signs (past 8 hours): - 10/10/24 07:50 10/10/24 07:50 10/10/24 08:00 Pulse Rate 96 H Respiratory Rate 17 Blood Pressure 126/75 117/73 Pulse Oximetry 100 Oxygen Delivery Method Oxygen Flow Rate 10/10/24 08:00 10/10/24 08:30 10/10/24 08:30 Pulse Rate 88 83 Respiratory Rate 14 20 Blood Pressure 114/70 Pulse Oximetry 100 100 Oxygen Delivery Method Oxygen Flow Rate 10/10/24 09:00 10/10/24 09:00 10/10/24 09:30 Pulse Rate 80 Respiratory Rate 18 Blood Pressure 120/59 L 108/70 Pulse Oximetry 100 Oxygen Delivery Method Oxygen Flow Rate 10/10/24 09:30 10/10/24 10:00 10/10/24 10:00 Pulse Rate 77 78 Respiratory Rate 14 13 Blood Pressure 107/65 Pulse Oximetry 98 100 Oxygen Delivery Method Oxygen Flow Rate 10/10/24 10:30 10/10/24 10:30 10/10/24 11:00 Pulse Rate 75 81 Respiratory Rate 21 16 Blood Pressure 113/72 Pulse Oximetry 100 100 Oxygen Delivery Method Oxygen Flow Rate 10/10/24 11:00 10/10/24 11:30 10/10/24 12:25 Pulse Rate Respiratory Rate Blood Pressure 115/72 Pulse Oximetry 100 Oxygen Delivery Method Room Air Room Air Oxygen Flow Rate 0 Oxygen Delivery Method Room Air Oxygen Flow Rate 0 Const General: healthy appearing, comfortable and No acute distress Resp Effort & Inspection: normal respiratory effort and able to speak in complete sentences GI Inspection: normal to inspection Palpation: soft, guarding (mild) and tender (no rebound) Other: tender to palpation of bilateral lower quadrants and suprapubic, more tender on the right than left Skin General: no rashes or lesions noted Neuro Cognition: normal cognition Speech: speech normal Psych Mood: congruent mood Affect: normal affect Objective Imaging US - abdomen: Radiologist's impression: FINDINGS: Uterus: Uterus is anteverted and normal in size at 7.5 x 3.7 x 5.7 cm. The myometrium is homogeneous. The endometrium measures 11 mm combined thickness. Ovaries: The right ovary measures 4.6 x 3.8 x 3.2 cm, with a calculated ovarian volume of 29.2 cc. The left ovary measures 1.5 x 3.2 x 1.7 cm, with a calculated ovarian volume of 4.0 cc. Involuting right ovarian cyst measuring 1.6 x 1.5 x 1.8 cm. Other: No pathologic free abdominal or pelvic fluid. IMPRESSION: Involuting right ovarian cyst. We strive to produce accurate, complete, and clear reports of imaging services. To assist us in improving patient care, this report was composed using standard report templates and voice recognition software. Therefore, it may contain abnormal punctuation, insertions and/or omissions. Occasional wrong-word or sound-alike substitutions may occur. Though we review the report and make efforts to correct it, we do recommend that the report be read carefully in proper context to recognize any text inaccuracies. Dictated by: Shyann Nassar M.D. on 10/10/2024 at 15:03 Approved by: Shyann Nassar M.D. on 10/10/2024 at 15:04 Labs 10/10/24 04:45 10/10/24 04:45 Labs: Laboratory Results - last 24 hr 10/10/24 10/10/24 10/10/24 04:45 07:05 07:50 WBC 20.6 H RBC 4.47 Hgb 14.1 Hct 41.7 MCV 93.2 MCH 31.4 MCHC 33.7 RDW 13.4 Plt Count 285 Neut % (Auto) 80.6 H Lymph % (Auto) 9.5 L [place] % (Auto) 9.3 Eos % (Auto) 0.4 L Baso % (Auto) 0.2 Neut # (Auto) 19632 H Lymph # (Auto) 2000 [place] # (Auto) 1900 H Eos # (Auto) 100 Baso # (Auto) 0 Sodium 139 Potassium 3.6 Chloride 106 Carbon Dioxide 18 L BUN 18 H Creatinine 0.64 Estimated GFR > 60 BUN/Creatinine Ratio 28.1 H Glucose 129 H Lactate 3.5 H 1.4 Calcium 10.0 Total Bilirubin 1.2 AST 28 ALT 22 Alkaline Phosphatase 57 Total Protein 7.9 Albumin 5.0 Globulin 2.9 Albumin/Globulin Ratio 1.7 Lipase 80 Procalcitonin 0.057 HCG, Quant < 2.39 Ur Chlamydia DNA (PCR) Not detected N gonorrhoeae DNA (PCR) Not detected COUNTS INCLUDE 234 BEDS AT THE [facility] Medical History (Updated 10/10/24 @ 15:44 by Geena Phoenix DO) Dysautonomia Anxiety Palpitations Social History household members: spouse Tobacco & Substance Use Smoking Status: Never smoker alcohol intake: never Assessment & Plan Assessment and plan (1) Abdominal pain: Qualifiers: Abdominal location: lower abdomen, unspecified Qualified Code(s): R10.30 - Lower abdominal pain, unspecified Status: Acute Assessment & Plan narrative: 29-year-old female with acute abdominal pain and leukocytosis. Her pelvic ultrasound findings correlate with the point in her menstrual cycle that she is at. At this point, there does not seem to be a FLOWER ARRANGER cause of her pain. -would recommend a clean-catch urine culture to rule out UTI -follow-up with FLOWER ARRANGER as needed Time-Based Coding :: [40min] spent with patient and on the chart (including review of chart, obtaining history, exam, reviewing outside data, placing orders, documenting exam and treatment plan, and counseling patient) on [10/10/24].
[2024-10-10 16:50] LABS: Appearance Urine UA CLEAR; Bilirubin Urine UA NEGATIVE (NEGATIVE); Color Urine UA YELLOW; Glucose Urine UA NEGATIVE (Negative); Ketones Urine UA 1+ (NEGATIVE); Leukocyte Esterase Urine UA NEGATIVE (NEGATIVE); Nitrite Urine UA NEGATIVE (Negative); Occult Blood Urine UA TRACE-INTACT (Negative); Protein Urine UA NEGATIVE (Negative); Specific Gravity Urine UA 1.025 (1.000-1.035); Urobilinogen Urine UA 0.2 E.U./dL (0.2)
[2024-10-10 16:51] LABS: pH Urine UA 5.5 (4.5-8.0)
[2024-10-10 16:59] LABS: Amorphous Sediment Urine 1+; Bacteria Urine None Seen; RBC Urine 1-5/HPF (0-5/HPF); Squamous Epithelial Cell Urine 0-1 /HPF (0-5/HPF); Urine Volume 20; WBC Urine 0-1/HPF (0-5/HPF)
[2024-10-10 17:50] LABS: Add Manual Diff / Slide Review NO; Basophils Absolute Auto 0 /uL (0-100); Basophils Percent Auto 0.1 % (0-2); Eosinophils Absolute Auto 0 /uL (0-450); Eosinophils Percent Auto 0.1 % (2-4); Hematocrit 38.6 % (36-46); Hemoglobin 12.9 g/dL (12.0-16.0); Lymphocytes Absolute Auto 1300 /uL (1100-4500); Lymphocytes Percent Auto 7.8 % (25-40); Mean Corpuscular HGB Conc 33.3 % (30-36); Mean Corpuscular Hemoglobin 31.4 PG (26-34); Mean Corpuscular Volume 94.2 fL (80-100); Monocytes Absolute Auto 1500 /uL (0-900); Neutrophils Absolute Auto 13800 /uL (1500-7000); Platelet Count 234 X10^3/uL (150-400); Red Cell Distribution Width 13.3 % (11.6-14.8); White Blood Cell Count 16.6 X10^3/uL (4.5-11.0)
--- NOTE | 2024-10-10 18:09 | P.HP_ITS ---
History of Present Illness History of Present Illness Date Patient Seen: 10/10/24 Time Patient Seen: 18:09 Chief complaint: abd pain, can't keep fluids down Narrative: 29-year-old woman admitted for abdominal pain. One day of lower abdominal pain with associated nausea and emesis no fever diarrhea melena or hematochezia. At admission afebrile WBC 20. CT abdomen pelvis appendix not definitively seen there was some mild inflammation of the terminal ileum and a involuting right ovarian cyst, mildly dilated loops of small bowel. Urinalysis negative. REPLACED BY [facility] Medical History (Updated 10/10/24 @ 18:14 by Favian Morgan MD) Dysautonomia Anxiety Palpitations Social History household members: spouse Smoking Status: Never smoker alcohol intake: never Meds Home Medications and Allergies Home Medications Medication Instructions Recorded Confirmed Type Magnesium Bisglycinate 1 cap PO DAILY 10/10/24 10/10/24 History Rhodiola Rosea 1 cap PO DAILY 10/10/24 10/10/24 History cod liver oil 1 cap PO DAILY 10/10/24 10/10/24 History Allergies Allergy/AdvReac Type Severity Reaction Status Date / Time No Known Drug Allergies Allergy Verified 10/11/24 13:07 Exam Vital Signs (past 8 hours): - 10/10/24 10:30 10/10/24 10:30 10/10/24 11:00 Temperature Pulse Rate 75 81 Respiratory Rate 21 16 Blood Pressure 113/72 Pulse Oximetry 100 100 Oxygen Delivery Method Oxygen Flow Rate 10/10/24 11:00 10/10/24 11:30 10/10/24 12:25 Temperature Pulse Rate Respiratory Rate Blood Pressure 115/72 Pulse Oximetry 100 Oxygen Delivery Method Room Air Room Air Oxygen Flow Rate 0 10/10/24 16:00 10/10/24 16:57 Temperature 98.8 F Pulse Rate 98 H Respiratory Rate 17 Blood Pressure 110/71 Pulse Oximetry 100 100 Oxygen Delivery Method Room Air Oxygen Flow Rate 0 Oxygen Delivery Method Room Air Oxygen Flow Rate 0 Narrative Exam Narrative: General adult woman alert oriented no acute distress Chest nonlabored respiration Abdomen tender right lower quadrant no peritonitis guarding rebound. Objective Labs 10/11/24 03:40 10/10/24 04:45 Labs: Laboratory Results - last 24 hr 1210/10/24 10/10/24 04:45 07:05 07:50 WBC 20.6 H RBC 4.47 Hgb 14.1 Hct 41.7 MCV 93.2 MCH 31.4 MCHC 33.7 RDW 13.4 Plt Count 285 Neut % (Auto) 80.6 H Lymph % (Auto) 9.5 L [place] % (Auto) 9.3 Eos % (Auto) 0.4 L Baso % (Auto) 0.2 Neut # (Auto) 50492 H Lymph # (Auto) 2000 [place] # (Auto) 1900 H Eos # (Auto) 100 Baso # (Auto) 0 Sodium 139 Potassium 3.6 Chloride 106 Carbon Dioxide 18 L BUN 18 H Creatinine 0.64 Estimated GFR > 60 BUN/Creatinine Ratio 28.1 H Glucose 129 H Lactate 3.5 H 1.4 Calcium 10.0 Total Bilirubin 1.2 AST 28 ALT 22 Alkaline Phosphatase 57 Total Protein 7.9 Albumin 5.0 Globulin 2.9 Albumin/Globulin Ratio 1.7 Lipase 80 Procalcitonin 0.057 HCG, Quant < 2.39 Urine Color Urine Appearance Urine pH Ur Specific [place] Urine Protein Urine Glucose (UA) Urine Ketones Urine Occult Blood Urine Nitrate Urine Bilirubin Urine Urobilinogen Ur Leukocyte Esterase Urine RBC Urine WBC Ur Squamous Epith Cells Amorphous Sediment Urine Bacteria Vol Urine Centrifuged Ur Chlamydia DNA (PCR) Not detected N gonorrhoeae DNA (PCR) Not detected 10/10/24 10/10/24 16:00 17:40 WBC 16.6 H RBC 4.10 Hgb 12.9 Hct 38.6 MCV 94.2 MCH 31.4 MCHC 33.3 RDW 13.3 Plt Count 234 Neut % (Auto) 83.0 H Lymph % (Auto) 7.8 L [place] % (Auto) 9.0 Eos % (Auto) 0.1 L Baso % (Auto) 0.1 Neut # (Auto) 15423 H Lymph # (Auto) 1300 [place] # (Auto) 1500 H Eos # (Auto) 0 Baso # (Auto) 0 Sodium Potassium Chloride Carbon Dioxide BUN Creatinine Estimated GFR BUN/Creatinine Ratio Glucose Lactate Calcium Total Bilirubin AST ALT Alkaline Phosphatase Total Protein Albumin Globulin Albumin/Globulin Ratio Lipase Procalcitonin HCG, Quant Urine Color Yellow Urine Appearance Clear Urine pH 5.5 Ur Specific [place] 1.025 Urine Protein Negative Urine Glucose (UA) Negative Urine Ketones 1+ H Urine Occult Blood Trace-intact Urine Nitrate Negative Urine Bilirubin Negative Urine Urobilinogen 0.2 Ur Leukocyte Esterase Negative Urine RBC 1-5/hpf Urine WBC 0-1/hpf Ur Squamous Epith Cells 0-1 /hpf Amorphous Sediment 1+ Urine Bacteria None seen Vol Urine Centrifuged 20 Ur Chlamydia DNA (PCR) N gonorrhoeae DNA (PCR) Assessment & Plan Assessment and plan (1) Abdominal pain: Qualifiers: Abdominal location: lower abdomen, unspecified Qualified Code(s): R 10.30 - Lower abdominal pain, unspecified Status: Acute Assessment & Plan narrative: 29-year-old female admitted with abdominal pain. Imaging and labs reviewed nonspecific. Notable leukocytosis improved with fluid resuscitation, mild inflammation of the terminal ileum an involuting right ovarian cyst no free air or free fluid appendix not definitively seen. Gynecology consultation reviewed and appreciated essentially the ovarian cyst is unlikely to be the source of her pain. I discussed with the patient options including observation versus diagnostic laparoscopy. At this point preference is to continue with observation. If she fails to improve then we will plan for diagnostic laparoscopy tomorrow. -NPO after midnight -[place] Time-Based Coding :: [TOTAL MINUTES] spent with patient and on the chart (including review of chart, obtaining history, exam, reviewing outside data, placing orders, documenting exam and treatment plan, and counseling patient) on [DATE]. Quality VTE Deep Vein Thrombosis/Pulmonary Embolism Present on Admission: No
--- NOTE | 2024-10-10 18:15 | PC.NURSE ---
Rec'd pt from ED w/ c/o abd pain, nausea, vomiting; suspected appendicitis; pt on surgery schedule for 1445; Dr Morgan here at 1310 and spoke w/ pt re: CT results; surgery cancelled; Dr Phoenix came to see pt and said she would talk to Dr Morgan as she did not see this as an OB problem; Dr Morgan came back to see pt at 1700; pt will stay tonight, be NPO at midnight, and they will reevaluate in the morning for possible exploratory lap; pt reports nausea better this evening and he pain is a 7/10, but she is declining pain meds at this time
[2024-10-11] VITALS (17 sets, daily range): BP systolic 101–125; BP diastolic 62–86; PULSE 69–111; RESP 12–19; TEMP 36.1–37.4; O2SAT 99–100; BMI 20.4
--- NOTE | 2024-10-11 | PATH_ITS ---
[facility] Accession Number: [id number] No. of containers..01 Tissue . 01 Material submitted: . appendix - APPENDIX . 01 Diagnosis: APPENDIX, APPENDECTOMY: Acute suppurative appendicitis and acute serositis. Negative for dysplasia and malignancy. MRV 10/16/2024 1256 Local . 01 Electronically signed: . Rich Beal MD, Pathologist NPI- [id number] . 01 Gross description: . Received in formalin with two patient identifiers and appendix, is a wynne and brown, vermiform appendix (6.2 cm in length by 1.2 cm in diameter) with a mesoappendix up to 0.9 cm. The serosa is smooth with wynne exudate. The margin is inked blue. The lumen is patent and dilated, containing wynne and brown grumous material. The lumen ranges from 0.1 to 0.8 cm in diameter. The vidal are wynne and average 0.3 cm thick with no noted perforations or lesions. Sponge Buffer sections to include the margin, one-half of the bisected distal tip, and cross sections submitted in A1. ([id number]) /MRV 10/13/2024 1903 Local . 01 Pathologist provided ICD-10: K35.80 . 01 CPT . 907946 Specimen Comment: A courtesy copy of this report has been sent to [phone] Performed at: [address] [id number] MD Chung Raymundo MD Phone: [phone]
[2024-10-11 04:56] LABS: Add Manual Diff / Slide Review NO; Basophils Absolute Auto 0 /uL (0-100); Basophils Percent Auto 0.3 % (0-2); Eosinophils Absolute Auto 100 /uL (0-450); Eosinophils Percent Auto 1.1 % (2-4); Hematocrit 34.9 % (36-46); Hemoglobin 11.7 g/dL (12.0-16.0); Lymphocytes Absolute Auto 1900 /uL (1100-4500); Lymphocytes Percent Auto 15.7 % (25-40); Mean Corpuscular HGB Conc 33.7 % (30-36); Mean Corpuscular Hemoglobin 31.5 PG (26-34); Mean Corpuscular Volume 93.6 fL (80-100); Monocytes Absolute Auto 1000 /uL (0-900); Monocytes Percent Auto 8.4 % (3-14); Neutrophils Absolute Auto 8900 /uL (1500-7000); Neutrophils Percent Auto 74.5 % (50-75); Platelet Count 204 X10^3/uL (150-400); Red Blood Cell Count 3.72 X10^6/uL (4.0-5.2); Red Cell Distribution Width 13.2 % (11.6-14.8); White Blood Cell Count 11.9 X10^3/uL (4.5-11.0)
[2024-10-11] MEDS: PIPERACILLIN/TAZO 3.375 GM in SODIUM CHLORIDE 0.9% 100 ML IV (05:00)
--- NOTE | 2024-10-11 13:28 | PM.CALLCOV.1 ---
Call Coverage Note Note Date of Patient Contact: 10/11/24 Time of Patient Contact: 13:28 Narrative of Care Provided: 29-year-old female unexplained abdominal pain nondiagnostic CT. Pain remains largely unchanged. Leukocytosis has improved. I discussed with her options including further medical observation on antibiotic therapy versus diagnostic laparoscopy. We discussed the risks and benefits of each. Following discussion her preference is to proceed with diagnostic laparoscopy. Overview of the procedure and its surgical risks including but not limited to hemorrhage, infection, damage to surrounding structures was reviewed. I asked for her permission to have intraoperative consultation with Gynecology should that be necessary. Her questions have been answered and she provides informed consent to proceed.
[2024-10-11] MEDS: CEFAZOLIN 2 GM/100 ML PREMIX 100 ML IV (14:05)
--- NOTE | 2024-10-11 14:06 | SUR.OPER ---
Supine on padded OR bed, head on pillow, arms padded and tucked at sides, legs uncrossed, safety belt at thigh, tape over blanket over lower legs .
[2024-10-11] MEDS: BUPIVACAINE 0.25% (PF) VIAL 30 ML INJ (14:32)
[2024-10-11] MEDS: LACTATED RINGERS 1,000 ML 42 ML IV (14:41)
--- NOTE | 2024-10-11 14:45 | P.OP_ITS ---
Operative Date/Time/Diagnoses Date of procedure: 10/11/24 Time of procedure: 14:45 Pre-op diagnosis: Abdominal pain Post-op diagnosis: other (Acute appendicitis) Procedure & Clinicians Procedure: Diagnostic laparoscopy Laparoscopic appendectomy Same procedure as scheduled: Yes Indications: 29-year-old woman who presented to the emergency room with abdominal pain CT abdomen pelvis nondiagnostic. She was observed for 24 hours on antibiotic therapy but failed to improve and she is taken to the operating room today for diagnostic laparoscopy. Surgeon: Favian Morgan Manufacturing Operator: John Grayson Anesthesia Type: General Operative Notes Findings: Inflammatory fluid within the pelvis. Appendix is inflamed but not perforated Specimen(s): other (Appendix, abdominal fluid) Estimated Blood Loss (mL): 10 Procedure in detail: Patient was brought to the operating room placed supine on the table. Bilateral lower extremity compression devices were applied. Anesthesia was induced and they intubated with an endotracheal tube. They received 3.375 g of Zosyn prior to skin incision. The left arm was tucked and appropriately padded. They were prepped and draped in sterile fashion. Time-out was performed. An infraumbilical incision was made the umbilical stalk was grasped and elevated and incision was made and the abdomen was entered atraumatically. A 12 mm balloon trocar was then placed through the incision and pneumoperitoneum of 14 mm Hg was established. The scope was then inserted and the abdomen inspected, there was no evidence of injury upon entry. Two 5 mm ports were placed under direct visualization, one in the left lower quadrant and second in the lower midline. A thorough laparoscopic evaluation was performed inspecting all four quadrants. There was inflammatory fluid within the pelvis which was suctioned and sent as specimen. The right ovary was notable for a cyst the left ovary, its associated to and uterus were unremarkable. The patient was then tilted right side up. The small bowel was then swept to the upper aspect of the abdomen. The tenie were followed to the base of the cecum where the appendix was identified. The appendix was was mobilized from its lateral attachments. It was acutely inflamed but not perforated. The appendix was grasped and a window within the mesentery was made at the base of the appendix using the [place] dissector with care to avoid injuring the cecum. The mesoappendix was then divided using the endo-stapler with a staple length of 2.5 mm-white load. The mesenteric staple line was inspected for hemostasis. The appendix was then amputated flush at the cecum using the endo-stapler blue load. The specimen was retrieved using a endoscopic retrieval bag through the 10 mm infra-umbilical port. The right paracolic gutter and the pouch of Niranjan were irrigated The 5 mm ports were then removed under direct visualization. The umbilical fascial incision was closed with 0 Vicryl in a figure-eight fashion. The skin wounds were irrigated and closed with 4-0 Monocryl followed by the application of Dermabond. Sponge instrument count at the end of the operation was correct. The patient tolerated procedure well was extubated and transferred to the postoperative care unit in stable condition. Complications: none Post-operative Condition: stable Disposition: Acute Care
[2024-10-11] MEDS: ONDANSETRON 4 MG/2 ML INJ IV (15:00)
--- NOTE | 2024-10-11 15:03 | CM.DANOTE ---
Initial DCP Assessment Note Pt is a 29yo female, resident of [place], admitted 10/10 for abd pain, IVF and abx therapy started. Patient failed to improve and was taken to the OR today for lap appy by Dr Morgan. PCP: Yola Alberts Payer: FLORINDA Berkowitz Reviewed chart, pt discussed in multidisciplinary rounds this morning. Patient lives independently with spouse and is expected to return once medically stable to do so. Supportive spouse in room. No barriers identified at this time to patient's safe discharge home w/family to assist; close outpatient f/u recommended. CM team will plan to follow clinical course closely in case any DC needs or concerns arise. MARTIN Foy Discharge Planning/Care Management CM Discharge Assessment Start: 10/11/24 15:00 Freq: Status: Active Protocol: Document 10/11/24 15:00 KD (Rec: 10/11/24 15:03 KD [id number]) Discharge Planning Assessment Assigned Compensation Associate MARTIN Hoang DPOA/Assigned Designee Name Isauro Lagunas, spouse Contact Information [phone] Advance Directives? No History Provided By Patient,Medical Record Prior Living Arrangements House Household Members spouse Type of transporation used prior to Drives own vehicle admit Independent with ADL's Yes Is patient alert and oriented? Yes Barriers to Discharge No Discharge Plan Home Transportation Arrangement Family Referrals Initiated None needed
[2024-10-11] MEDS: MORPHINE 2 MG/ML INJ IV ×2 (15:30→18:36)
[2024-10-11] MEDS: SODIUM CHLORIDE 0.9% 1,000 ML 100 ML IV (15:31)
--- NOTE | 2024-10-11 15:52 | PM.OP.1 ---
Operative Date/Time/Diagnoses Date of procedure: 10/11/24 Time of procedure: 15:52 Pre-op diagnosis: Anal skin tag Internal hemorrhoids Post-op diagnosis: same Procedure & Clinicians Procedure: Banding of internal hemorrhoids Excision of anal skin tag Same procedure as scheduled: Yes Indications: 29-year-old female with symptomatic internal hemorrhoids Surgeon: Favian Morgan Anesthesia Type: Sedation Operative Notes Findings: Grade 2 internal hemorrhoids left lateral and right posterior Specimen(s): other (anal skin tag) Estimated Blood Loss (mL): 5 Procedure in detail: Patient was brought to the operating room placed supine on the table. Bilateral lower extremity compression devices were applied. Sedation was administered and she was placed into lithotomy position. Time-out was performed. She was prepped and draped in typical fashion. Internal examination of the rectum was made and demonstrated grade 2 hemorrhoids in the left lateral in the right posterior columns. Each column was grasped with a suction then doubly ligated at its base. There was a small anal skin tag at the 12 o'clock positioned in lithotomy which was excised. The cutaneous defect was closed with interrupted Monocryl. A total of 30 mL of 0.25% bupivacaine with epinephrine was used for local anesthetic. She tolerated the procedure well and was transferred to recovery in good condition. Complications: none Post-operative Condition: stable Disposition: same day surgery
[2024-10-12] MEDS: MORPHINE 2 MG/ML INJ IV (00:37)
[2024-10-12 04:00] VITALS: BP 100/59; PULSE 79; RESP 16; TEMP 36.9; O2SAT 99
[2024-10-12] MEDS: OXYCODONE IR 5 MG TABLET PO ×2 (04:15→08:08)
[2024-10-12 05:03] LABS: Add Manual Diff / Slide Review NO; Basophils Absolute Auto 0 /uL (0-100); Basophils Percent Auto 0.1 % (0-2); Eosinophils Absolute Auto 0 /uL (0-450); Eosinophils Percent Auto 0.2 % (2-4); Hematocrit 32.6 % (36-46); Lymphocytes Absolute Auto 1400 /uL (1100-4500); Mean Corpuscular HGB Conc 33.9 % (30-36); Mean Corpuscular Hemoglobin 31.8 PG (26-34); Mean Corpuscular Volume 93.8 fL (80-100); Monocytes Absolute Auto 800 /uL (0-900); Monocytes Percent Auto 8.3 % (3-14); Neutrophils Absolute Auto 7800 /uL (1500-7000); Neutrophils Percent Auto 77.4 % (50-75); Platelet Count 189 X10^3/uL (150-400); Red Blood Cell Count 3.47 X10^6/uL (4.0-5.2); Red Cell Distribution Width 13.4 % (11.6-14.8)
--- NOTE | 2024-10-12 06:45 | PC.NURSE ---
pt switched to oral pain meds; she is for discharge this morning
[2024-10-12] MEDS: IBUPROFEN 600 MG TABLET PO (08:08)
[2024-10-12 08:09] VITALS: BP 109/75; PULSE 81; RESP 15; O2SAT 100
[2024-10-12 08:22] VITALS: O2SAT 99
--- NOTE | 2024-10-12 08:48 | PM.DS.1 ---
History of Present Illness History of Present Illness Chief complaint: abd pain, can't keep fluids down Narrative: 29-year-old woman admitted for abdominal pain. One day of lower abdominal pain with associated nausea and emesis no fever diarrhea melena or hematochezia. At admission afebrile WBC 20. CT abdomen pelvis appendix not definitively seen there was some mild inflammation of the terminal ileum and a involuting right ovarian cyst, mildly dilated loops of small bowel. Urinalysis negative. Discharge Providers Provider Date of admission: 10/10/24 09:58 Discharge Date: 10/12/24 Primary care physician: Yola Alberts ND Discharge provider: Favian Morgan MD Summary Hospital Course Discharge Diagnosis: Acute appendicitis Hospital Course: The patient was admitted for abdominal pain of unknown etiology. Please refer to the HPI. She had 24 hours of IV antibiotics with failure to significantly improve her pain. With proceeded with a diagnostic laparoscopy performed October 11, 2024 which demonstrated acute non perforated appendicitis and she had an appendectomy. She had an unremarkable postoperative course. At the time of discharge she is tolerant of a regular diet and pain is adequately controlled she is ambulatory. Exam Vital Signs (past 8 hours): - 10/12/24 04:00 10/12/24 04:00 10/12/24 08:09 Temperature 98.4 F Pulse Rate 79 81 Respiratory Rate 16 15 Blood Pressure 100/59 L 109/75 Pulse Oximetry 99 99 100 Oxygen Delivery Method Room Air Oxygen Flow Rate 0 0 10/12/24 08:22 Temperature Pulse Rate Respiratory Rate Blood Pressure Pulse Oximetry 99 Oxygen Delivery Method Room Air Oxygen Flow Rate Oxygen Delivery Method Room Air Oxygen Flow Rate 0 Narrative Exam Narrative: General adult woman alert oriented no acute distress Abdomen soft appropriately tender to palpation Extremities warm well perfused Objective Labs 10/12/24 03:50 10/10/24 04:45 Labs: Laboratory Results - last 24 hr 10/12/24 03:50 WBC 10.0 RBC 3.47 L Hgb 11.0 L Hct 32.6 L MCV 93.8 MCH 31.8 MCHC 33.9 RDW 13.4 Plt Count 189 Neut % (Auto) 77.4 H Lymph % (Auto) 14.0 L [place] % (Auto) 8.3 Eos % (Auto) 0.2 L Baso % (Auto) 0.1 Neut # (Auto) 7800 H Lymph # (Auto) 1400 [place] # (Auto) 800 Eos # (Auto) 0 Baso # (Auto) 0 PFSH Medical History (Updated 10/10/24 @ 18:14 by Favian Morgan MD) Dysautonomia Anxiety Palpitations Social History household members: spouse Smoking Status: Never smoker alcohol intake: never Discharge Plan Discharge Plan Patient Disposition: Home Provider Discharge Comment: -Okay to shower but avoid submerging wounds in water until seen in follow-up. -Walking only for exercise for the first 2 weeks, avoid straining. -Resume light aerobic activity after 2 weeks but avoid weight training and or exercise that requires significant core contraction -No driving while taking narcotics. Discharge orders & Medications Prescriptions: New tramadol 50 mg tablet 50 mg PO Q6H PRN (Reason: pain) Qty: 5 0RF docusate sodium [Colace] 100 mg capsule 100 mg PO BID Qty: 30 0RF acetaminophen [Tylenol] 325 mg capsule 650 mg PO QID PRN (Reason: pain) Qty: 60 0RF celecoxib [Celebrex] 200 mg capsule 200 mg PO BID Qty: 20 0RF Continued cod liver oil Capsule 1 cap PO DAILY Magnesium Bisglycinate 1 cap PO DAILY Rhodiola Rosea 1 cap PO DAILY Follow up/Referrals: Favian Morgan MD [Physician] - 2 Weeks (Follow up as needed via telehealth or Healthcare portal) Diet/Activity/Treatments Diet: Diet as Tolerated Skin/Wound/Dressing Care Report to your healthcare provider any signs of infection, such as:: chills, fever, increased pain, unusual drainage and unusual redness Visit Report/Discharge Packet Stand Alone Forms: Patient Portal/API, Stroke Signs & Symptoms Discharge Data Primary Care Provider: Yola Alberts Attending Provider: Favian Morgan Admit Date/Time: 10/10/24 09:58 Quality VTE Deep Vein Thrombosis/Pulmonary Embolism Present on Admission: No
[2024-10-12 12:00] VITALS: O2SAT 99
[2024-10-12] MEDS: ACETAMINOPHEN 325 MG TABLET 650 MG PO (13:12)
--- NOTE | 2024-10-12 14:02 | PC.NURSE ---
Day shift: Paperwork signed and all questions answered. Left unit at approx 1400 via WC and taken by LORIN García. Spouse is driving them home. New scripts sent to Pt's pharmacy. Pt has all personal belongings. Pain has been well controlled today per MAR. Lap sites remain CDI w/ no s/s of infection.
== END 2024-10-12 14:04 | disposition home or self-care (01) ==
LOC: ED 09:57 → AC 10:01 → ICU 11:02
PROVIDERS: Emergency Medicine; Student in an Organized Health Care Education/Training Program; Admitting Provider Surgery; Emergency Provider Emergency Medicine; PCP Naturopath; Visit Provider Surgery
PROC: (CPT 49320; principal; 2024-10-11 14:00)
DX: K35.30 Acute appendicitis with localized peritonitis, without perforation or gangrene (principal)
CPT/HCPCS: 44970; 36415; 74177; 76830; 76856; 80053; 81001; 81003; 83605; 83690; 84145; 84702; 85025; 87040; 87070; 87075; 87086; 87205; 87491; 87591; 93975; 96365; 96366; 96367; 96368; 96375; 96376; 99222; 99285; G0378; J0330; J0690; J1100; J1171; J1885; J2250; J2270; J2405; J2543; J2704; J2765; J3010; Q9967

== ENCOUNTER 2024-10-16 11:42 | Emergency (ER) | payer BC, SELFPAY ==
[2024-10-10 12:15] VITALS: BMI 20.4
[2024-10-16] VITALS (8 sets, daily range): BP systolic 109–131; BP diastolic 70–81; PULSE 78–119; RESP 10–21; TEMP 36.6; O2SAT 99–100
--- NOTE | 2024-10-16 12:04 | DI.RAD.S_ITS ---
PROCEDURE: XR CHEST 1V INDICATIONS: chest pain TECHNIQUE: One view of the chest was acquired. COMPARISON: None. FINDINGS: Surgical changes and devices: None. Lungs and pleura: No dense airspace disease or pleural effusions. Mediastinum: Normal heart size Bones and chest wall: Unremarkable IMPRESSION: No acute radiographic abnormality on this single view study. Dictated by: Den Bernstein M.D. on 10/16/2024 at 13:19 Approved by: Den Bernstein M.D. on 10/16/2024 at 13:19
--- NOTE | 2024-10-16 12:10 | PC.NURSE ---
Ordered EKG d/t patients tachycardia in triage. Patient feeling very fatigued and moving slowly. Was walking to patient room and patient requested to go to bathroom which will delay EKG time for patients request. RN assigned to patient aware.
--- NOTE | 2024-10-16 12:17 | EKG_ITS ---
[place] [id number] [address] [place] [id number] Test Date: 2024-10-16 Pat Name: Stefany Lagunas Department: [facility] Room: Gender: Female Director [employer]: CINDY : 1995 Requested By: Order Number: [id number] Reading MD: Brigido Hauser Measurements Intervals Omar Rate: 93 P: 73 WV: 114 QRS: 82 QRSD: 78 T: -66 QT: 350 QTc: 435 Interpretive Statements Normal sinus rhythm ST & T wave abnormality, consider inferior ischemia Electronically Signed On 10-17-2024 19:42:36 PST by Brigido Hauser
--- NOTE | 2024-10-16 12:32 | PC.NURSE ---
Pt ambulatory to room. Pt reports that she is feeling very weak and tired. Braided her hair this morning and had to rest afterwards. VSS. Appears in NAD.
[2024-10-16 12:33] LABS: Add Manual Diff / Slide Review NO; Basophils Absolute Auto 0 /uL (0-100); Basophils Percent Auto 0.3 % (0-2); Eosinophils Absolute Auto 200 /uL (0-450); Eosinophils Percent Auto 1.8 % (2-4); Hematocrit 46.1 % (36-46); Hemoglobin 15.6 g/dL (12.0-16.0); Lymphocytes Absolute Auto 2300 /uL (1100-4500); Lymphocytes Percent Auto 18.2 % (25-40); Mean Corpuscular HGB Conc 33.9 % (30-36); Mean Corpuscular Hemoglobin 31.6 PG (26-34); Mean Corpuscular Volume 93.2 fL (80-100); Monocytes Absolute Auto 1000 /uL (0-900); Monocytes Percent Auto 8.1 % (3-14); Neutrophils Absolute Auto 9000 /uL (1500-7000); Neutrophils Percent Auto 71.6 % (50-75); Platelet Count 394 X10^3/uL (150-400); Red Blood Cell Count 4.94 X10^6/uL (4.0-5.2); Red Cell Distribution Width 13.1 % (11.6-14.8); White Blood Cell Count 12.6 X10^3/uL (4.5-11.0)
[2024-10-16 12:34] LABS: Prothrombin Time 11.4 SECONDS (9.4-12.5)
[2024-10-16 12:37] LABS: PTT Partial Thromboplastin Tim 39 SECONDS (25.1-36.5)
[2024-10-16 12:39] LABS: Alanine Aminotransferase 23 IU/L (<35); Albumin Globulin Ratio 1.4 (1.0-2.8); Alkaline Phosphatase 63 U/L (38-126); Aspartate Aminotransferase 29 IU/L (14-36); BUN Creatinine Ratio 21.1 (6-22); Bilirubin Total 0.5 mg/dL (0.2-1.3); Blood Urea Nitrogen 12 mg/dL (7-17); Calcium 10.1 mg/dL (8.4-10.2); Carbon Dioxide 24 mmol/L (22-32); Chloride 103 mmol/L (98-107); Creatine Kinase 25 U/L (30-135); Estimated Glomerular Filt Rate > 60 mL/min (>60); Globulin 3.5 g/dL (1.7-4.1); Glucose 95 mg/dL (70-100); HEMOLYSIS < 15 (0-50); Lipase 110 U/L (23-300); Magnesium 1.9 mg/dL (1.6-2.3); Potassium 3.8 mmol/L (3.4-5.1); Sodium 140 mmol/L (137-145); Total Protein 8.5 g/dL (6.3-8.2)
[2024-10-16 12:51] LABS: NT-proBNP (BNP-Adult 18+) < 20 pg/mL (<125); Troponin I < 0.012 ng/mL (0.01-0.034)
--- NOTE | 2024-10-16 13:47 | ED_ITS ---
HPI - Abdominal Pain General Chief Complaint: Weakness Stated Complaint: sx last wk, fatigued, weakness Time Seen by Provider: 10/16/24 13:24 Source: patient Mode of arrival: Ambulatory History of Present Illness HPI narrative: Patient is a 29-year-old female presenting today with generalized weakness. She had appendectomy here October 11 which was uneventful. She was discharged home 4 days ago. She reports improved abdominal pain she is having a regular appetite normal bowel movements. Today she is has noted some dizziness lightheadedness and elevated heart rate. He has been resting heart rate has been from normal she has not passed out she is felt like she might pass out but did not. She denies any significant shortness of breath or fever no painful frequent urination no swelling Related Data Home Medications Medication Instructions Recorded Confirmed Magnesium Bisglycinate 1 cap PO DAILY 10/10/24 10/10/24 Rhodiola Rosea 1 cap PO DAILY 10/10/24 10/10/24 cod liver oil 1 cap PO DAILY 10/10/24 10/10/24 Previous Rx's Medication Instructions Recorded acetaminophen 325 mg capsule 650 mg (2 x 325 mg) PO QID PRN 10/11/24 (Tylenol) pain #60 caps docusate sodium 100 mg capsule 100 mg PO BID #30 caps 10/11/24 (Colace) tramadol 50 mg tablet 50 mg PO Q6H PRN pain #5 tabs 10/11/24 celecoxib 200 mg capsule (Celebrex) 200 mg PO BID #20 caps 10/12/24 Allergies Allergy/AdvReac Type Severity Reaction Status Date / Time No Known Drug Allergies Allergy Verified 10/16/24 11:54 Patient History Medical History Dysautonomia Anxiety Palpitations Social History household members: spouse Smoking Status: Never smoker alcohol intake: never Smoking Status: Never smoker alcohol intake frequency: 3 or more drinks per day Exam Initial Vital Signs Initial Vital Signs: Vital Signs Temperature 97.9 F 10/16/24 11:54 Pulse Rate 119 H 10/16/24 11:54 Respiratory Rate 18 10/16/24 11:54 Blood Pressure 109/73 10/16/24 11:54 Pulse Oximetry 100 10/16/24 11:54 Oxygen Delivery Method Room Air 12/16/24 11:54 GENERAL: Alert well-appearing 29-year-old female and in no acute distress. HEENT: Head atraumatic,EOMI, pupils reactive, face symmetric, moist mucous membranes CARDIOVASCULAR: Regular rate and rhythm without murmurs, rubs or gallops. RESPIRATORY: Breath sounds equal bilaterally, no wheezes rales or rhonchi. ABDOMEN: Soft, nontender. Normoactive bowel sounds all 4 quadrants. No guarding or rebound. Incision sites healing no erythema : No CVA tenderness EXTREMITIES: Normal range of motion, no clubbing or edema. Neurovascularly intact NEUROLOGICAL: Alert and oriented x4.Normal gait and speech. SKIN: Warm, dry, no laceration, no petechiae, no rashes or lesions. Course Orders Ordered: ED Orders 10/16/24 12:04 XR chest 1V Stat EKG-12 Lead Stat 10/16/24 12:19 Test Urine Stat Urine Microscopic Stat 10/16/24 12:20 Complete Blood Count AUTO DIFF Stat Comprehensive Metabolic Panel Stat D Dimer Stat Lipase Stat Magnesium Stat NT-proBNP (BNP-Adult 18+) Stat PTT Partial Thromboplastin [place]ie Stat Prothrombin Time INR Stat Troponin & CK Cardiac Panel Stat 10/16/24 14:23 CT angio chest PE protocol Stat Vital Signs Vital signs: Vital Signs - 8 hr 10/16/24 11:54 10/16/24 12:38 10/16/24 13:00 Temperature 97.9 F Pulse Rate 119 H 86 Respiratory Rate 18 12 Blood Pressure 109/73 109/70 Pulse Oximetry 100 99 Oxygen Delivery Method Room Air 10/16/24 13:00 10/16/24 13:30 10/16/24 13:30 Temperature Pulse Rate 90 95 H Respiratory Rate 10 L 17 Blood Pressure 115/74 Pulse Oximetry 99 100 Oxygen Delivery Method Room Air 10/16/24 14:00 10/16/24 14:00 10/16/24 14:30 Temperature Pulse Rate 87 Respiratory Rate 12 Blood Pressure 117/72 128/81 Pulse Oximetry 100 Oxygen Delivery Method Room Air 10/16/24 14:30 10/16/24 14:56 10/16/24 14:56 Temperature Pulse Rate 94 H 86 Respiratory Rate 21 Blood Pressure 129/78 Pulse Oximetry 100 100 Oxygen Delivery Method Room Air 10/16/24 15:00 10/16/24 15:00 Temperature Pulse Rate 78 Respiratory Rate 16 Blood Pressure 131/78 Pulse Oximetry 100 Oxygen Delivery Method MDM - Abdominal Pain Lab Data 10/16/24 12:20 10/16/24 12:20 Labs: Lab Results 10/16/24 10/16/24 Range/Units 12:19 12:20 WBC 12.6 H (4.5-11.0) X10^3/uL RBC 4.94 (4.0-5.2) X10^6/uL Hgb 15.6 (12.0-16.0) g/dL Hct 46.1 H (36-46) % MCV 93.2 (80-100) fL MCH 31.6 (26-34) PG MCHC 33.9 (30-36) % RDW 13.1 (11.6-14.8) % Plt Count 394 (150-400) X10^3/uL Neut % (Auto) 71.6 (50-75) % Lymph % (Auto) 18.2 L (25-40) % [place] % (Auto) 8.1 (3-14) % Eos % (Auto) 1.8 L (2-4) % Baso % (Auto) 0.3 (0-2) % Neut # (Auto) 9000 H (1958-7930) /uL Lymph # (Auto) 2300 (7173-1245) /uL [place] # (Auto) 1000 H (0-900) /uL Eos # (Auto) 200 (0-450) /uL Baso # (Auto) 0 (0-100) /uL PT 11.4 (9.4-12.5) SECONDS INR 1.0 (0.9-1.3) APTT 39 H (25.1-36.5) SECONDS D-Dimer 1530 H (<500) ng/ml Sodium 140 (137-145) mmol/L Potassium 3.8 (3.4-5.1) mmol/L Chloride 103 (98-107) mmol/L Carbon Dioxide 24 (22-32) mmol/L BUN 12 (7-17) mg/dL Creatinine 0.57 (0.52-1.04) mg/dL Estimated GFR > 60 (>60) mL/min BUN/Creatinine Ratio 21.1 (6-22) Glucose 95 (70-100) mg/dL Calcium 10.1 (8.4-10.2) mg/dL Magnesium 1.9 (1.6-2.3) mg/dL Total Bilirubin 0.5 (0.2-1.3) mg/dL AST 29 (14-36) IU/L ALT 23 (<35) IU/L Alkaline Phosphatase 63 (38-126) U/L Total Creatine Kinase 25 L (30-135) U/L Troponin I < 0.012 (0.01-0.034) ng/mL NT-Pro-B Natriuret Pep < 20 (<125) pg/mL Total Protein 8.5 H (6.3-8.2) g/dL Albumin 5.0 (3.5-5.0) g/dL Globulin 3.5 (1.7-4.1) g/dL Albumin/Globulin Ratio 1.4 (1.0-2.8) Lipase 110 (23-300) U/L Urine RBC 1-5/hpf (0-5/HPF) Urine WBC None seen (0-5/HPF) Ur Squamous Epith Cells 0-1 /hpf (0-5/HPF) Urine Bacteria None seen (None) Ur Culture Indicated? Cult not indicated Vol Urine Centrifuged 10ml (spun) Urine Test Negative (Negative) Point of care testing: Urine Dip Bedside Urine Glucose Negative Bedside Urine Bilirubin - Negative Bedside Urine Ketone ++ 40 Urine Specific [place] 1.000 Bedside Urine Occult Blood +++ Bedside Urine pH 6.0 Bedside Urine Protein - Negative Bedside Urine Urobilinogen - Negative Bedside Urine Nitrite - Negative Bedside Urine Leukocytes - Negative Esterase Imaging Data Chest x-ray: Radiologist's Impression: PROCEDURE: XR CHEST 1V INDICATIONS: chest pain TECHNIQUE: One view of the chest was acquired. COMPARISON: None. FINDINGS: Surgical changes and devices: None. Lungs and pleura: No dense airspace disease or pleural effusions. Mediastinum: Normal heart size Bones and chest wall: Unremarkable IMPRESSION: No acute radiographic abnormality on this single view study. Dictated by: Den Bernstein M.D. on 10/16/2024 at 13:19 CT scan - chest: Radiologist's Impression: PROCEDURE: CT ANGIO CHEST PE PROTOCOL INDICATIONS: dimer 1500 recent surgery short of breath TECHNIQUE: After the administration of intravenous contrast, 2 mm thick sections acquired from the pulmonary apices to the posterior costophrenic angles. 3-dimensional maximum intensity projection (MIP) coronal and sagittal reformats were then acquired through the thorax. For radiation dose reduction, the following was used: automated exposure control, adjustment of mA and/or kV according to patient size. COMPARISON: [facility], CT, CT ANGIO CHEST PE PROTOCOL, 11/23/2021, 4:19. FINDINGS: Image quality: Diagnostic Lungs and pleura: No dense airspace disease or pleural effusions. Mediastinum, heart, and esophagus: No acute pulmonary embolism. Unremarkable appearance of the esophagus. No pathologic lymph nodes by size criteria. Anterior mediastinal soft tissue likely thymic remnant. Chest wall and thyroid: Prominent thyroid partially seen as before. Chest wall is unremarkable Upper abdomen: No gross abnormality on these arterial phase images Bones: No acute or suspicious osseous finding. IMPRESSION: No acute pulmonary embolism. No dense airspace disease or pleural effusions Other findings above Dictated by: Den Bernstein M.D. on 10/16/2024 at 14:54 ECG Data Attestation: I personally reviewed and interpreted this ECG as follows: Prior ECG tracings: available for review Interpretation: Sinus rhythm rate 93 NE interval 114 QRS [address] changes artifact noted no ischemia MDM Narrative Medical decision making narrative: MDM CC: Fatigue weakness Complicating co-morbidities: Recent appendectomy Medical records reviewed: Recent admission Differential considered: Infection UTI pneumonia pulmonary embolism DVT Exam documented above, pertinent findings include: Abdomen soft nontender appears well nontoxic. Well in room heart rate does fluctuate quite a bit ranging from 90-117 Lab Test results independently reviewed as above. Pertinent findings: WBC 12.6 hemoglobin 15.6 hematocrit 46.9 platelets 394 Sodium 140 potassium 3.8 chloride 103, creatinine 0.5 Urinalysis negative Independently reviewed EKG as above Imaging studies independently reviewed: CT no pulmonary embolus Chest x-ray no acute cardiopulmonary process Treatments: None Re-evaluations: Abdomen remains soft heart rate is better in the 90s she appears well sitting upright nontoxic Discussion: Patient 79-year-old female presents today with weakness and elevated heart rate. Postop day 5. From appendectomy. She is mild leukocytosis of 12 without evidence of infection. She has no UTI x-ray was clear. D-dimer was found to be 1500. With elevated heart rate elevated D-dimer recent hospitalist today vague symptoms discussion with patient about CT scan. Fortunately did not show any evidence of pulmonary embolism. At this time unclear what is causing here irregular tachycardia. However heart rate is never above 120 min frequently in the 90s. No evidence of dehydration or anemia. At this time supportive care she otherwise appears well. Abdomen is soft nontender no concern for complication of surgery. Discharge Plan Departure Patient Disposition: Home Clinical Impression: Heart palpitations Instructions: DI for Palpitations Activity Restrictions/Additional Instructions: *You have been diagnosed with palpitations *What to do: At this time blood work and scans are overall reassuring *Continue to take medications as directed *Follow up with your primary care provider in 2-3 days or call [phone] *Return to ER if you should have increased pain fever shortness of nausea vomiting or any new, worsening or concerning symptoms Prescriptions: No Action cod liver oil Capsule 1 cap PO DAILY Magnesium Bisglycinate 1 cap PO DAILY Rhodiola Rosea 1 cap PO DAILY tramadol 50 mg tablet 50 mg PO Q6H PRN (Reason: pain) Qty: 5 0RF docusate sodium [Colace] 100 mg capsule 100 mg PO BID Qty: 30 0RF acetaminophen [Tylenol] 325 mg capsule 650 mg PO QID PRN (Reason: pain) Qty: 60 0RF celecoxib [Celebrex] 200 mg capsule 200 mg PO BID Qty: 20 0RF Referrals: Miscellaneous,Doctor, MD [Primary Care Provider] - Stand Alone Forms: Patient Portal/API/Survey
[2024-10-16 14:05] LABS: D Dimer 1530 ng/ml (<500)
[2024-10-16 14:14] LABS: Urine Volume 10mL (spun)
[2024-10-16 14:16] LABS: Bacteria Urine None Seen; Culture Indicated Urine Cult Not Indicated; RBC Urine 1-5/HPF (0-5/HPF); Squamous Epithelial Cell Urine 0-1 /HPF (0-5/HPF); WBC Urine None Seen (0-5/HPF)
--- NOTE | 2024-10-16 14:23 | DI.CT.S_ITS ---
PROCEDURE: CT ANGIO CHEST PE PROTOCOL INDICATIONS: dimer 1500 recent surgery short of breath TECHNIQUE: After the administration of intravenous contrast, 2 mm thick sections acquired from the pulmonary apices to the posterior costophrenic angles. 3-dimensional maximum intensity projection (MIP) coronal and sagittal reformats were then acquired through the thorax. For radiation dose reduction, the following was used: automated exposure control, adjustment of mA and/or kV according to patient size. COMPARISON: [facility], CT, CT ANGIO CHEST PE PROTOCOL, 11/23/2021, 4:19. FINDINGS: Image quality: Diagnostic Lungs and pleura: No dense airspace disease or pleural effusions. Mediastinum, heart, and esophagus: No acute pulmonary embolism. Unremarkable appearance of the esophagus. No pathologic lymph nodes by size criteria. Anterior mediastinal soft tissue likely thymic remnant. Chest wall and thyroid: Prominent thyroid partially seen as before. Chest wall is unremarkable Upper abdomen: No gross abnormality on these arterial phase images Bones: No acute or suspicious osseous finding. IMPRESSION: No acute pulmonary embolism. No dense airspace disease or pleural effusions Other findings above Dictated by: Den Bernstein M.D. on 10/16/2024 at 14:54 Approved by: Den Bernstein M.D. on 10/16/2024 at 14:58
[2024-10-16 14:32] LABS: Pregnancy Test Urine Negative (Negative)
== END 2024-10-16 15:27 | disposition home or self-care (01) ==
PROVIDERS: Emergency Provider Emergency Medicine
DX: R00.2 Palpitations (principal); R53.1 Weakness; R42 Dizziness and giddiness; Z98.890 Other specified postprocedural states
CPT/HCPCS: 36415; 71045; 71275; 80053; 81003; 81015; 81025; 82550; 83690; 83735; 83880; 84484; 85025; 85379; 85610; 85730; 93005; 99283; 99284; Q9967